=== PATIENT | male | born 1975 | race Caucasian/White ===

== ENCOUNTER 2018-06-21 18:54 | Emergency (ER) | payer SELFPAY ==
[2018-06-21 19:29] VITALS: BP 169/98; PULSE 98; RESP 16; TEMP 39; O2SAT 96
--- NOTE | 2018-06-21 20:16 | DI.REPORT_ITS ---
SYMPTOM/DIAGNOSIS: ATRAUMATIC SWELLING. LEFT KNEE: The joint spaces are well maintained. A large joint effusion is visible. There is minimal minda-articular spurring. No fracture or bony erosions are seen. IMPRESSION: Joint effusion.
--- NOTE | 2018-06-21 20:17 | ED.GENADUL ---
Disposition Clinical Impression: Swelling of left knee joint Condition: Stable Instructions: Swollen Knee Joint (ED) Additional Instructions: you can take 1000mg tylenol and 600mg ibuprofen every 6 hours for pain as needed if you have severe worsening of pain or fevers return to the emergency department follow up with your primary care provider this week Medical Decision Making - Lab Data Laboratory Tests 06/21/18 06/21/18 20:47 20:47 WBC 15.62 H RBC 5.11 Hgb 15.7 Hct 45.0 MCV 88.1 MCH 30.7 MCHC 34.9 RDW 13.5 Plt Count 311 MPV 9.8 Immature Gran % 0.3 Neutrophils % 62.7 Lymphocytes % 26.4 Monocytes % 8.9 Eosinophils % 1.3 Basophils % 0.4 Absolute Neutrophils 9.79 H Absolute Lymphocytes 4.12 H Absolute Monocytes 1.39 H Absolute Eosinophils 0.20 Absolute Basophils 0.06 ESR 13 Sodium 137 Potassium 3.7 Chloride 100 Carbon Dioxide 27.1 Anion Gap 9.9 BUN 18 Creatinine 1.16 Estimated GFR/1.73 m2 >= 60.00 Glucose 170 H Uric Acid 6.9 Calcium 8.9 Total Bilirubin 0.4 AST 18 ALT 66 Alkaline Phosphatase 104 C-Reactive Protein 2.60 H Total Protein 7.5 Albumin 3.5 Results reviewed for labs ordered during visit: Yes - Radiology Data Radiology results: report reviewed X-ray reviewed by radiologist. Advise large knee effusion. No acute fracture seen. Alignment is within the normal limits. There is minimal marginal spurring along the medial compartment and inferior patella. Joint spaces are otherwise well-maintained. - Medical Decision Making Patient presents today with chief complaint of left knee pain. On exam, left knee is noted to have moderate effusion. No erythema or discoloration. No signs of trauma. The knee is warm to palpation. He is describing as a pressure diffusely about the knee. No joint line tenderness. Is able to straight leg raise. Calf is soft and nontender. Patient appears nontoxic. Temp is noted to be 39?C. I have asked nursing staff to repeat this orally. Will obtain x-ray to evaluate for possible bony abnormality. Will obtain CBC, CMP, uric acid, ESR and CRP. Discussed this plan with the patient is in agreement. He is declining any analgesics at this time. Temp was repeated by nursing staff orally, 36.5C. Patient did not appear febrile, did not feel warm. I am questioning if the initial reading was inacurate given the way in which this was measured. X-ray reviewed by radiology. They advised that he has a large knee effusion with no evidence of acute osseous abnormality. Early medial patellofemoral compartment syndrome also arthritis noted. Patient was able to ambulate to radiology department unassisted. Minimally antalgic gait. He continues to decline any analgesics. States the pain is minimal at this time. Laboratory evaluation significant for leukocytosis with WBC of 15.62. Left shift with neutrophil of 9.79. CRP is 2.6. Uric acid is normal at 6.9 as his ESR 13. Discussed above findings with the patient. I discussed my concern for possible infection. We discussed risk/benefits of joint aspiration. He voiced understanding and wishes to proceed. Procedure note: Using standard sterile technique the left knee was initially anesthetized with LMX cream. This was then removed and the skin and the skin was prepped with 3 swabs of Betadine. Using sterile gloves and 18-gauge needle was used to aspirate 30 cc of joint fluid. Appears slightly orange, almost hemorrhagic. There are small floaters suggestive of possible degenerative changes in the fluid. Patient tolerated procedure well and a dry sterile management in place. Joint aspirate fluid was sent for laboratory evaluation. At the end of my shift, this is still pending. Care was transitioned to Dr. Garcia with joint aspirate fluid still pending. Discussed plan of treatment with the patient should this be bacterial infection which will include IV antibiotics and admission. History of Present Illness - General Chief complaint: Orthopedic Stated complaint: LEFT KNEE SWOLLEN Time Seen by Provider: 06/21/18 20:07 Source: patient, family, RN notes reviewed Mode of arrival: ambulatory Limitations: no limitations - History of Present Illness Initial comments: Patient is a 42-year-old male, coming by significant other, with chief complaint of left knee pain. He reports that he awoke yesterday morning and noted pain and swelling to the left knee. Has not noted skin discoloration. Denies any trauma. Denies any overuse injury. States that he did injure this knee as a child and needed suture closure of anterior laceration. No surgery on affected knee. He denies any fevers or chills. Reports that overall he is feeling quite well. Denies any pain in the lower leg or thigh. States that he was active today, ambulating around [facility]. States that he did drink several alcoholic beverages last night. No alcohol the day before. Patient is an active smoker. Patient denies penile discharge. No new sexual partners. He reports she has been tested for STDs in the past and has been found to be negative. He denies any changes in his eyes, no discharge, visual changes. Denies any headache. - Related Data Hydrochlorothiazide 1 tab PO DAILY 06/28/17 Lisinopril 1 tab PO DAILY 06/28/17 Omeprazole [PriLOSEC] 1 tab PO DAILY 06/28/17 Allergies Allergy/AdvReac Type Severity Reaction Status Date / Time Penicillins Allergy Unknown Unverified 06/21/18 19:33 Review of Systems Constitutional: no symptoms reported, see HPI Respiratory: no symptoms reported Cardiovascular: denies: chest pain Gastrointestinal: denies: abdominal pain, nausea, vomiting Musculoskeletal: as per HPI Skin: as per HPI. denies: rash, lesions, change in color Neurological: as per HPI, abnormal gait (Reports that he has discomfort with ambulation). denies: numbness, paresthesias Past Medical History - Past Medical History Medical history: no medical history Surgical history: non-contributory - Social History Alcohol use: heavy (Daily alcohol use) General Exam - General Limitations: no limitations General appearance: alert, in no apparent distress - Eye Eye exam: Present: normal apperance - Respiratory Respiratory exam: Present: normal lung sounds bilaterally. Absent: respiratory distress - Cardiovascular Cardiovascular Exam: Present: regular rate, normal rhythm, normal heart sounds - Extremities Exam Extremities exam: Present: tenderness (Reports he is diffuse pressure about the knee), normal capillary refill, joint swelling. Absent: normal inspection (Exam the patient's left lower extremity is significant for moderate effusion to the left knee. No discoloration. No erythema. Knee is warm to the touch. No evidence of trauma. He is good range of motion. Calf is soft and nontender. No joint line tenderness. Patient is able to straight leg raise. No palpable deformity. No pain elicited with palpation.), pedal edema, calf tenderness - Neurological Exam Neurological exam: Present: alert, normal gait. Absent: motor sensory deficit - Psychiatric Psychiatric exam: Present: normal affect, normal mood - Skin Skin exam: Present: warm, dry, normal color Course Vital Signs - 24 hr 06/21/18 19:29 Temperature 39 C H Pulse 98 H Respiratory 16 Rate Blood Pressure 169/98 Pulse Oximetry 96
[2018-06-21 20:31] VITALS: TEMP 36.4
--- NOTE | 2018-06-21 21:27 | DI.VRAD_ITS ---
EXAM: XR Left Knee, 4 or more Views EXAM DATE/TIME: 06/21/2018 8:17 PM CLINICAL HISTORY: 42 years old, male; Pain; Knee; Left; Patient HX: A-traumatic swelling of lt. Knee TECHNIQUE: XR Left knee 4 or more views. COMPARISON: No relevant prior studies available. FINDINGS: Bones/joints: Large knee joint effusion is present. No acute fractures are seen. Alignment is within normal limits. There is minimal marginal spurring along the medial compartment and inferior patella. Joint spaces are otherwise preserved. Soft tissues: Normal. IMPRESSION: 1. Large knee joint effusion without evident acute osseous abnormality. 2. Early medial and patellofemoral compartment osteoarthrosis. Dictated and Authenticated by: Christopher Yoon MD. Ordering:JONATAN MUNOZ MD
[2018-06-21 21:34] LABS: ALT 66 U/L (12-78); AST 18 U/L (15-37); Albumin 3.5 g/dL (3.4-5.0); Alkaline Phosphatase 104 U/L (46-116); Anion Gap 9.9 mmol/L (3-11); BUN 18 mg/dL (7-18); Bilirubin, Total 0.4 mg/dL (0.2-1.0); CO2 27.1 mmol/L (21.0-32.0); CREATININE 1.16 mg/dL (0.70-1.30); Calcium 8.9 mg/dL (8.5-10.1); Chloride 100 mmol/L (98-107); Glucose 170 mg/dL (70-100); Potassium 3.7 mmol/L (3.5-5.1); Sodium 137 mmol/L (136-145); Total Protein 7.5 g/dL (6.4-8.2); Uric Acid 6.9 mg/dL (3.5-7.2)
[2018-06-21 21:42] LABS: Abs Immature Grans 0.04 k/cumm (0.0-0.09); Absolute Basophil Count 0.06 k/cumm (0.0-0.2); Absolute Lymphocyte Count 4.12 k/cumm (1.2-3.4); Absolute Monocyte Count 1.39 k/cumm (0.11-0.7); Absolute Neutrophil Count 9.79 k/cumm (1.2-6.7); Basophils % 0.4; Eosinophils % 1.3; HGB 15.7 g/dL (13.5-17.5); Immature Grans % 0.3; Lymphocytes % 26.4; Mean Corp. HGB Concentration 34.9 g/dL (32.0-36.0); Mean Corpuscular Hemoglobin 30.7 pg (27.0-33.0); Mean Corpuscular Volume 88.1 fL (80-95); Mean Platelet Volume 9.8 fL (8.0-11.0); Monocytes % 8.9; Neutrophils % 62.7; Platelet Count 311 x1000/uL (130-400); RBC 5.11 m/cumm (4.50-6.00); RBC Distribution Width 13.5 % (11.8-14.1); White Blood Cell Count 15.62 k/cumm (4.4-10.8)
[2018-06-21 22:09] LABS: ESR 13 MM/HR (0-15)
[2018-06-21 22:54] LABS: Source L KNEE
[2018-06-21 22:55] LABS: Clarity CLOUDY; Nucleated Cells 4674 /MM3 (0-0)
[2018-06-21 23:12] LABS: Mononuclear Cells 40 % (0-0); Polynuclear Cells 60 % (0-0)
[2018-06-21 23:20] LABS: Source KNEE
--- NOTE | 2018-06-21 23:44 | ED.FU ---
Disposition Clinical Impression: Swelling of left knee joint Condition: Stable Instructions: Swollen Knee Joint (ED) Additional Instructions: you can take 1000mg tylenol and 600mg ibuprofen every 6 hours for pain as needed if you have severe worsening of pain or fevers return to the emergency department follow up with your primary care provider this week Medical Decision Making - Lab Data Laboratory Tests 06/21/18 06/21/18 06/21/18 20:47 20:47 22:30 WBC 15.62 H RBC 5.11 Hgb 15.7 Hct 45.0 MCV 88.1 MCH 30.7 MCHC 34.9 RDW 13.5 Plt Count 311 MPV 9.8 Immature Gran % 0.3 Neutrophils % 62.7 Lymphocytes % 26.4 Monocytes % 8.9 Eosinophils % 1.3 Basophils % 0.4 Absolute Neutrophils 9.79 H Absolute Lymphocytes 4.12 H Absolute Monocytes 1.39 H Absolute Eosinophils 0.20 Absolute Basophils 0.06 ESR 13 Sodium 137 Potassium 3.7 Chloride 100 Carbon Dioxide 27.1 Anion Gap 9.9 BUN 18 Creatinine 1.16 Estimated GFR/1.73 m2 >= 60.00 Glucose 170 H Uric Acid 6.9 Calcium 8.9 Total Bilirubin 0.4 AST 18 ALT 66 Alkaline Phosphatase 104 C-Reactive Protein 2.60 H Total Protein 7.5 Albumin 3.5 Fluid Source L knee Fluid Color Red Fluid Appearance Cloudy Fluid WBC 4674 H Fluid Mononuclear Cell 40 H Fl Polymorphonucl Cell 60 H Fluid Crystals Fluid Crystal Source 06/21/18 22:30 WBC RBC Hgb Hct MCV MCH MCHC RDW Plt Count MPV Immature Gran % Neutrophils % Lymphocytes % Monocytes % Eosinophils % Basophils % Absolute Neutrophils Absolute Lymphocytes Absolute Monocytes Absolute Eosinophils Absolute Basophils ESR Sodium Potassium Chloride Carbon Dioxide Anion Gap BUN Creatinine Estimated GFR/1.73 m2 Glucose Uric Acid Calcium Total Bilirubin AST ALT Alkaline Phosphatase C-Reactive Protein Total Protein Albumin Fluid Source Fluid Color Fluid Appearance Fluid WBC Fluid Mononuclear Cell Fl Polymorphonucl Cell Fluid Crystals See comment Fluid Crystal Source Knee Results reviewed for labs ordered during visit: Yes Care Signed Out By:: casandra thorpe - Vital Signs Recent Vitals - 8H: Vital Signs - 8 hr 06/21/18 06/21/18 19:29 20:31 Temperature 102.2 F H 97.5 F L Pulse 98 H Respiratory 16 Rate Blood Pressure 169/98 Pulse Oximetry 96 - Continuation of Care Continuation of Care Plan: Patient's arthrocentesis studies show wbc over 4000, no bacteria on gram stain or crystals. He states he noticed it was uncomfortable on Friday morning and denie fevers or chills or trauma. He has no significant redness of the knee on my exam and has full rom of the knee. He states most of the time he doesn't even have pain unless he twists it a certain way Given reassuring arthrocentesis studies that this is not septic joint will have him f/u with his pcp and return precautions given. I did add on lyme studies. No urinary symptoms or d/c and no vision changes so doubt gonococcal arthritis
[2018-06-23 10:55] LABS: Lyme Ab w Rflx to Lyme Confirm Negative
[2018-06-23 22:12] LABS: Anaplasma phagocytophilum Negative (Negative); B. miyamotoi PCR Negative (Negative); Babesia divergens/MO-1 Negative (Negative); Babesia duncani Negative (Negative); Babesia microti Negative (Negative); Ehrlichia chaffeensis Negative (Negative); Ehrlichia ewingii/canis Negative (Negative); Ehrlichia muris eauclairensis Negative (Negative)
--- NOTE | 2018-06-27 09:52 | ED.FU.B ---
- Follow Up Follow Up Plan: message left for patient as his synovial culture is growing staph species, attempted to make contact to see how he was doing to determine if this was contaminant or not
== END 2018-06-21 23:58 ==
PROVIDERS: Physician Assistant; Emergency Provider Emergency Medicine; PCP Nurse Practitioner Family
DX: M25.462 Effusion, left knee (principal)
CPT/HCPCS: 20610; 80053; 85652; 87077; 99283; 73564; 84550; 85025; 86140; 86618; 87070; 87205; 87798; 89051; 89060

== ENCOUNTER 2018-07-11 11:05 | Emergency (ER) | payer SELFPAY ==
[2018-07-11] MEDS: Clindamycin 150 MG CAP 450 MG (11:25)
--- NOTE | 2018-07-11 12:00 | DI.US_ITS ---
SYMPTOMS/DIAGNOSIS: LEFT REDNESS, SWELLING RIGHT LOWER EXTREMITY ULTRASOUND: There is edema in the area of the swelling and redness in the calf. The deep venous system is freely compressible. No thrombus is visible. No superficial thrombophlebitis is seen. There is no evidence of Black's cyst or other fluid collection. There are mildly enlarged groin lymph nodes, which may indicate cellulitis. IMPRESSION: No evidence of DVT.
== END 2018-07-11 12:45 | disposition home or self-care (01) ==
LOC: ER 12:42
PROVIDERS: Emergency Provider Emergency Medicine; PCP Nurse Practitioner Family
DX: L03.115 Cellulitis of right lower limb (principal); I10 Essential (primary) hypertension
CPT/HCPCS: 99284; 93971

== ENCOUNTER 2018-11-16 20:04 | Emergency (ER) | payer BC, SELFPAY ==
[2018-11-16 20:08] VITALS: BP 157/98; PULSE 120; RESP 28; TEMP 36.6; O2SAT 94
[2018-11-16] MEDS: Albuterol/Ipratropium 3 ML UPD VIAL UPD (20:20)
--- NOTE | 2018-11-16 20:25 | W.ED.GENAD ---
Discharge Plan Disposition Patient Disposition: HOME Condition: Stable Discharge Details Chief Complaint: RespSymp Clinical Impression: Pneumonia Primary Care Provider: Lora Garrett ED Provider: Erika Gomez Home Meds and New Rx's Prescriptions: New benzonatate [Tessalon Perles] 100 mg capsule 100 mg PO QID PRN (Reason: cough) Qty: 10 RF: 0 levofloxacin 750 mg tablet 750 mg PO DAILY Qty: 4 RF: 0 Continued omeprazole 40 MG capsule,delayed release(DR/EC) 1 tab PO DAILY RF: 0 lisinopril 40 MG tablet 1 tab PO DAILY RF: 0 hydrochlorothiazide 12.5 MG tablet 2 tab PO DAILY RF: 0 Discharge Instructions Instructions: Benzonatate (By mouth), Levofloxacin (By mouth), Pneumonia (ED) Additional Instructions: Encourage hydration. Tylenol and/or Motrin as needed for discomfort. Stop smoking. Take antibiotics as prescribed, even if symptoms improve please take entire course. Tessalon perles as prescribed to help with symptomatic management. If you develop shortness of breath, difficulty breathing, inability to stay hydrated or other new/worsneing symptoms please seek care urgently once again. Follow up with primary care at the end of the week for reevaluation. Referrals: Lora Garrett [Primary Care Provider] - Medical Decision Making Patient is a 43 year old male, accompanied by , with c/c of cough, fevers, body aches. Reprorts that he initially began with symptoms 1.5 weeks ago. REprots that this initially lasted one week and then he was improving. Hoewver, today he had a sudden recurrence of symptoms. Has been taking Robittusin. Endorses dry heaves after forceful coughing but denies nausea/vomiting otherwise. No change in bowel habits. No SOB or CP. Reports history of COPD, HTN. Patient smokes 1PPD. Did not receive influenza vaccine. On exam, he appers pale and fatigued. Patient has crackles in LLL. Tachycardic at 120, O2 94%, respiratory rate 28. Currently afebrile. REviewed previous visits, O2 is typically around 94%, likely associated with COPD and smoking status. Influenza negative. WBC 20. Creatinine 1.33. Glucose 197, patietn denies personal or family history of diabetes. AST 41, alk phos 128. These have not been elevated historically. He denies RUQ pain. This may be associated with recent viral illness. Advised he have these reassessed by his PCP XR reviewed by radiologist: FINDINGS: No airspace consolidation, pleural effusion or pneumothorax. The cardiomediastinal silhouette is unremarkable. IMPRESSION: No acute findings. Discussed findings with the patient and his . Whlie XR does not show on imaging, his history and physical exam is concerning for pneumonia. He will be treated with abx, will begin these here. Patient receiving 2nd liter of fluids. Will begin on Levofloxacin. With patients history of COPD and his allergy to Penicillin, patient needs to be treated with flouroquinolone. Patient given first dose of Levofloxacin while here, tolerated this well. Encouraged hydration. Will give Tessalon Perles to help with symptomatic management. HR improved after fluids, he appears more energetic. Patient remains afebrile. Patient given strict return precautions. Advised f/u with PCP. Encouraged smoking cessation. All of their questions and concerns were addressed, they are in agreement with this plan. HPI General Mode of arrival: ambulatory. Date/Time Provider Initiated Documentation: 11/16/18 20:12. Limitations to Documentation: no limitations. Information obtained by: patient and family (accompanied by ). History of Present Illness 43 year old M presents to the emergency department with the chief complaint of cough, described as moderate, Patient started experiencing this day(s) (1) and it has been constant. No relieving factors improve symptom(s), No exacerbating factors reported . Patient notes cough, fever/chills, loss of appetite and nausea/vomiting (nausea associated with cough); denies chest pain, diaphoresis, headaches, malaise, rash, shortness of breath and syncope. Patient did receive the following treatments prior to arrival, other (robitussin) Related Data Home Medications Medication Instructions Recorded Confirmed hydrochlorothiazide 2 tab PO DAILY 06/28/17 11/16/18 lisinopril 1 tab PO DAILY 06/28/17 11/16/18 omeprazole 1 tab PO DAILY 06/28/17 11/16/18 benzonatate [Tessalon Perles] 100 mg PO QID PRN #10 cap 11/16/18 levofloxacin 750 mg PO DAILY #4 tab 11/16/18 Previous Rx's Medication Instructions Recorded benzonatate [Tessalon Perles] 100 mg PO QID PRN #10 cap 11/16/18 levofloxacin 750 mg PO DAILY #4 tab 11/16/18 Allergies Allergy/AdvReac Type Severity Reaction Status Date / Time Penicillins Allergy Unknown Unverified 06/21/18 19:33 General Stated Complaint: RespSymp REGULO: 3 Review of Systems Constitutional Reports as per HPI and Denies headache(s) Eyes Reports as per HPI, Denies eye discharge and Denies irritation ENT Denies change in voice, Denies ear discharge, Denies otalgia, Denies headache(s), Reports nasal congestion, Reports nasal discharge, Denies sore throat and Denies throat swelling Cardiovascular Reports as per HPI, Denies chest pain and Denies dyspnea Respiratory Reports as per HPI, Reports cough, Denies pain on inspiration, Denies pain with cough, Denies dyspnea, Denies stridor and Denies wheezing Gastrointestinal Reports as per HPI, Denies abdominal pain, Denies change in bowel habits, Denies nausea and Denies vomiting Integumentary/Breasts Reports as per HPI and Denies rash Neurologic Denies headache(s) Allergic/Immunologic Denies throat swelling and Denies wheezing [facility] Social History Smoking/Tobacco Use Status: Current every day Exam Const General: cooperative, healthy appearing, comfortable, no acute distress, well developed and well groomed Nutritional Appearance: average body habitus and well nourished Orientation: alert and awake [facility] Head: normal to inspection, normocephalic and atraumatic Ears: hearing grossly normal bilaterally, external ears normal and TM's normal bilaterally General nose exam: external nose normal and nares normal Face and sinus: normal facial exam, sinuses nontender and face symmetric Mouth: oral mucosae normal, lip normal, tongue normal, oropharynx normal and moist mucous membranes Teeth and gingiva: dentition normal Throat: posterior oropharynx normal, tonsils normal and uvula midline Eyes General: appearance normal, both eyes and all related structures Neck Neck: normal visual inspection, full ROM, no lymphadenopathy and no meningeal signs Resp Effort & Inspection: normal respiratory effort, able to speak in complete sentences and no respiratory distress Auscultation: crackles on the left in the lower lung brown, no rales, no rhonchi and no wheezes Cardio Rate: regular rate Rhythm: regular rhythm Heart Sounds: S1 normal and S2 normal Skin General skin exam: no rashes or lesions noted Neuro General: alert and awake Cognition: normal cognition Speech: speech normal Gait: normal gait Extrem General: no pedal edema and no calf tenderness Psych Appearance: grossly normal and well kempt Mental Status: mental status grossly normal Speech and Movement: speech and movement normal Course Vital Signs Temperature 36.6 C 11/16/18 20:08 Pulse 120 H 11/16/18 20:08 Respiratory Rate 28 H 11/16/18 20:08 Blood Pressure 157/98 H 11/16/18 20:08 Pulse Oximetry 94 L 11/16/18 20:08 Temperature 36.6 C 11/16/18 20:08 Temperature Source Skin 11/16/18 20:08 Pulse 120 H 11/16/18 20:08 Respiratory Rate 28 H 11/16/18 20:08 Respiratory Effort 11/16/18 20:12 Blood Pressure 157/98 H 11/16/18 20:08 Blood Pressure Position Sitting 11/16/18 20:08 Pulse Oximetry 94 L 11/16/18 20:08 Oxygen Delivery Method Room Air 11/16/18 20:08 Oxygen Flow Rate 0 11/16/18 20:08 Pain Level 0 11/16/18 20:08 Lab/Test Results Lab/Test Results: 11/16/18 20:20 Nasopharynx Influenza Types A,B Antigen - Pending
--- NOTE | 2018-11-16 20:28 | ED.GENADUL_ITS ---
Discharge Plan Disposition Patient Disposition: HOME Condition: Stable Discharge Details Chief Complaint: RespSymp Clinical Impression: Pneumonia Primary Care Provider: Lora Garrett ED Provider: Erika Gomez Home Meds and New Rx's Prescriptions: New benzonatate [Tessalon Perles] 100 mg capsule 100 mg PO QID PRN (Reason: cough) Qty: 10 RF: 0 levofloxacin 750 mg tablet 750 mg PO DAILY Qty: 4 RF: 0 Continued omeprazole 40 MG capsule,delayed release(DR/EC) 1 tab PO DAILY RF: 0 lisinopril 40 MG tablet 1 tab PO DAILY RF: 0 hydrochlorothiazide 12.5 MG tablet 2 tab PO DAILY RF: 0 Discharge Instructions Instructions: Benzonatate (By mouth), Levofloxacin (By mouth), Pneumonia (ED) Additional Instructions: Encourage hydration. Tylenol and/or Motrin as needed for discomfort. Stop smoking. Take antibiotics as prescribed, even if symptoms improve please take entire course. Tessalon perles as prescribed to help with symptomatic management. If you develop shortness of breath, difficulty breathing, inability to stay hydrated or other new/worsneing symptoms please seek care urgently once again. Follow up with primary care at the end of the week for reevaluation. Referrals: Lora Garrett [Primary Care Provider] - Medical Decision Making Patient is a 43 year old male, accompanied by , with c/c of cough, fevers, body aches. Reprorts that he initially began with symptoms 1.5 weeks ago. REprots that this initially lasted one week and then he was improving. Hoewver, today he had a sudden recurrence of symptoms. Has been taking Robittusin. Endorses dry heaves after forceful coughing but denies nausea/vomiting otherwise. No change in bowel habits. No SOB or CP. Reports history of COPD, HTN. Patient smokes 1PPD. Did not receive influenza vaccine. On exam, he appers pale and fatigued. Patient has crackles in LLL. Tachycardic at 120, O2 94%, respiratory rate 28. Currently afebrile. REviewed previous visits, O2 is typically around 94%, likely associated with COPD and smoking status. Influenza negative. WBC 20. Creatinine 1.33. Glucose 197, patietn denies personal or family history of diabetes. AST 41, alk phos 128. These have not been elevated historically. He denies RUQ pain. This may be associated with recent viral illness. Advised he have these reassessed by his PCP XR reviewed by radiologist: FINDINGS: No airspace consolidation, pleural effusion or pneumothorax. The cardiomediastinal silhouette is unremarkable. IMPRESSION: No acute findings. Discussed findings with the patient and his . Whlie XR does not show on imaging, his history and physical exam is concerning for pneumonia. He will be treated with abx, will begin these here. Patient receiving 2nd liter of fluids. Will begin on Levofloxacin. With patients history of COPD and his allergy to Penicillin, patient needs to be treated with flouroquinolone. Patient given first dose of Levofloxacin while here, tolerated this well. Encou raged hydration. Will give Tessalon Perles to help with symptomatic management. HR improved after fluids, he appears more energetic. Patient remains afebrile. Patient given strict return precautions. Advised f/u with PCP. Encouraged smoking cessation. All of their questions and concerns were addressed, they are in agreement with this plan. HPI General Mode of arrival: ambulatory . Date/Time Provider Initiated Documentation: 11/16/18 20:12 . Limitations to Documentation: no limitations . Information obtained by: patient and family (accompanied by ) . History of Present Illness 43 year old M presents to the emergency department with the chief complaint of cough, described as moderate, Patient started experiencing this day(s) (1) and it has been constant. No relieving factors improve symptom(s), No exacerbating factors reported . Patient notes cough, fever/chills, loss of appetite and nausea/vomiting (nausea associated with cough); denies chest pain, diaphoresis, headaches, malaise, rash, shortness of breath and syncope. Patient did receive the following treatments prior to arrival, other (robitussin) Related Data Home Medications Medication Instructions Recorded Confirmed hydrochlorothiazide 2 tab PO DAILY 06/28/17 11/16/18 lisinopril 1 tab PO DAILY 06/28/17 11/16/18 omeprazole 1 tab PO DAILY 06/28/17 11/16/18 benzonatate [Tessalon Perles] 100 mg PO QID PRN #10 cap 11/16/18 levofloxacin 750 mg PO DAILY #4 tab 11/16/18 Previous Rx's Medication Instructions Recorded benzonatate [Tessalon Perles] 100 mg PO QID PRN #10 cap 11/16/18 levofloxacin 750 mg PO DAILY #4 tab 11/16/18 Allergies Allergy/AdvReac Type Severity Reaction Status Date / Time Penicillins Allergy Unknown Unverified 06/21/18 19:33 General Stated Complaint: RespSymp REGULO: 3 Review of Systems Constitutional Reports as per HPI and Denies headache(s) Eyes Reports as per HPI, Denies eye discharge and Denies irritation ENT Denies change in voice, Denies ear discharge, Denies otalgia, Denies headache(s), Reports nasal congestion, Reports nasal discharge, Denies sore throat and Denies throat swelling Cardiovascular Reports as per HPI, Denies chest pain and Denies dyspnea Respiratory Reports as per HPI, Reports cough, Denies pain on inspiration, Denies pain with cough, Denies dyspnea, Denies stridor and Denies wheezing Gastrointestinal Reports as per HPI, Denies abdominal pain, Denies change in bowel habits, Denies nausea and Denies vomiting Integumentary/Breasts Reports as per HPI and Denies rash Neurologic Denies headache(s) Allergic/Immunologic Denies throat swelling and Denies wheezing FOR[facility]LY [facility] Social History Smoking/Tobacco Use Status: Current every day Exam Const General: cooperative, healthy appearing, comfortable, no acute distress, well developed and well groomed Nutritional Appearance: average body habitus and well nourished Orientation: alert and awake [facility] Head: normal to inspection, normocephalic and atraumatic Ears: hearing grossly normal bilaterally, external ears normal and TM's normal bilaterally General nose exam: external nose normal and nares normal Face and sinus: normal facial exam, sinuses nontender and face symmetric Mouth: oral mucosae normal, lip normal, tongue normal, oropharynx normal and moist mucous membranes Teeth and gingiva: dentition normal Throat: posterior oropharynx normal, tonsils normal and uvula midline Eyes General: appearance normal, both eyes and all related structures Neck Neck: normal visual inspection, full ROM, no lymphadenopathy and no meningeal signs Resp Effort & Inspection: normal respiratory effort, able to speak in complete sentences and no respiratory distress Auscultation: crackles on the left in the lower lung brown, no rales, no rhonchi and no wheezes Cardio Rate: regular rate Rhythm: regular rhythm Heart Sounds: S1 normal and S2 normal Skin General skin exam: no rashes or lesions noted Neuro General: alert and awake Cognition: normal cognition Speech: speech normal Gait: normal gait Extrem General: no pedal edema and no calf tenderness Psych Appearance: grossly normal and well kempt Mental Status: mental status grossly normal Speech and Movement: speech and movement normal Course Vital Signs Temperature 36.6 C 11/16/18 20:08 Pulse 120 H 11/16/18 20:08 Respiratory Rate 28 H 11/16/18 20:08 Blood Pressure 157/98 H 11/16/18 20:08 Pulse Oximetry 94 L 11/16/18 20:08 Temperature 36.6 C 11/16/18 20:08 Temperature Source Skin 11/16/18 20:08 Pulse 120 H 11/16/18 20:08 Respiratory Rate 28 H 11/16/18 20:08 Respiratory Effort 11/16/18 20:12 Blood Pressure 157/98 H 11/16/18 20:08 Blood Pressure Position Sitting 11/16/18 20:08 Pulse Oximetry 94 L 11/16/18 20:08 Oxygen Delivery Method Room Air 11/16/18 20:08 Oxygen Flow Rate 0 11/16/18 20:08 Pain Level 0 11/16/18 20:08 Lab/Test Results Lab/Test Results: 11/16/18 20:20 Nasopharynx Influenza Types A,B Antigen - Pending
[2018-11-16] MEDS: Normal Saline 1,000 ML 1000 ML IV (20:40)
[2018-11-16 20:54] LABS: Abs Immature Grans 0.07 k/cumm (0.0-0.09); HCT 45.9 % (40.0-50.0); HGB 15.8 g/dL (13.5-17.5); Mean Corp. HGB Concentration 34.4 g/dL (32.0-36.0); Mean Corpuscular Hemoglobin 30.4 pg (27.0-33.0); Mean Corpuscular Volume 88.3 fL (80-95); Mean Platelet Volume 9.4 fL (8.0-11.0); Platelet Count 382 x1000/uL (130-400); RBC Distribution Width 13.1 % (11.8-14.1); White Blood Cell Count 20.08 k/cumm (4.4-10.8)
[2018-11-16 21:09] LABS: Absolute Lymphocyte Count 3.82 k/cumm (1.2-3.4); Absolute Monocyte Count 2.21 k/cumm (0.11-0.7); Absolute Neutrophil Count 13.86 k/cumm (1.2-6.7); Atypical Lymphocytes % 0; RBC Morphology Normal
[2018-11-16 21:18] LABS: ALT 128 U/L (12-78); AST 41 U/L (15-37); Albumin 3.6 g/dL (3.4-5.0); Alkaline Phosphatase 102 U/L (46-116); Anion Gap 11.7 mmol/L (3-11); BUN 18 mg/dL (7-18); Bilirubin, Total 0.7 mg/dL (0.2-1.0); CO2 26.3 mmol/L (21.0-32.0); CREATININE 1.33 mg/dL (0.70-1.30); Chloride 99 mmol/L (98-107); Estimated GFR 58.68 (mL/min/1.73m2); Glucose 197 mg/dL (70-100); Potassium 4.4 mmol/L (3.5-5.1); Sodium 137 mmol/L (136-145)
--- NOTE | 2018-11-16 21:20 | DI.RAD_ITS ---
SYMPTOMS/DIAGNOSIS: COUGH CHEST: Frontal and lateral views. Comparison 01/12/13. The heart size and pulmonary vasculature are stable and within normal limits. The lungs are free of infiltrates, effusions or pneumothoraces. The bones appear intact. IMPRESSION: No acute pulmonary process.
[2018-11-16 21:33] VITALS: PULSE 104; RESP 26; TEMP 37.1; O2SAT 94
--- NOTE | 2018-11-16 21:56 | DI.VRAD_ITS ---
EXAM: XR Chest, 2 Views EXAM DATE/TIME: 11/16/2018 8:14 PM CLINICAL HISTORY: 43 years old, male; Signs and symptoms; Cough; Patient HX: Cough and cold symptoms x 1 week, smoker TECHNIQUE: XR of the chest, 2 views. COMPARISON: CR CHEST 2 VIEWS PA,LAT 06/08/2015 4:00 PM FINDINGS: No airspace consolidation, pleural effusion or pneumothorax. The cardiomediastinal silhouette is unremarkable. IMPRESSION: No acute findings. Dictated and Authenticated by: Ezekiel Sahu MD. Ordering:JONATAN James MD
[2018-11-16] MEDS: Lactated Ringers 1,000 ML 1000 ML IV (22:00)
[2018-11-16] MEDS: Benzonatate 100 MG CAP 200 MG PO (23:10)
[2018-11-16 23:14] VITALS: BP 147/86; PULSE 101; RESP 24; TEMP 37.1; O2SAT 96
== END 2018-11-16 23:14 | disposition home or self-care (01) ==
PROVIDERS: Emergency Provider Physician Assistant; PCP Nurse Practitioner Family
DX: J18.9 Pneumonia, unspecified organism (principal); F17.210 Nicotine dependence, cigarettes, uncomplicated
CPT/HCPCS: 36415; 80053; 87449; 99283; 71046; 85025; J7620

== ENCOUNTER 2019-07-08 10:51 | Outpatient (CLI) | payer BC, SELFPAY ==
[2019-07-08 11:06] LABS: Abs Immature Grans 0.02 k/cumm (0.0-0.09); Absolute Basophil Count 0.05 k/cumm (0.0-0.2); Absolute Eosinophil Count 0.24 k/cumm (0.0-0.7); Absolute Lymphocyte Count 3.42 k/cumm (1.2-3.4); Absolute Monocyte Count 0.87 k/cumm (0.11-0.7); Absolute Neutrophil Count 6.74 k/cumm (1.2-6.7); Basophils % 0.4; Eosinophils % 2.1; HCT 46.5 % (40.0-50.0); HGB 16.3 g/dL (13.5-17.5); Immature Grans % 0.2; Lymphocytes % 30.2; Mean Corp. HGB Concentration 35.1 g/dL (32.0-36.0); Mean Corpuscular Hemoglobin 30.9 pg (27.0-33.0); Mean Corpuscular Volume 88.2 fL (80-95); Mean Platelet Volume 9.3 fL (8.0-11.0); Monocytes % 7.7; Neutrophils % 59.4; Platelet Count 356 x1000/uL (130-400); RBC 5.27 m/cumm (4.50-6.00); RBC Distribution Width 12.6 % (11.8-14.1); White Blood Cell Count 11.34 k/cumm (4.4-10.8)
[2019-07-08 11:48] LABS: C-Reactive Protein 2.05 mg/dL (0.0-0.3)
[2019-07-08 12:57] LABS: ESR 15 mm/hr (0-15)
[2019-07-09 10:55] LABS: Lyme Ab w Rflx to Lyme Confirm Negative
[2019-07-09 12:58] LABS: Rheumatoid Factor <8 IU/mL (<12.5)
[2019-07-09 14:13] LABS: ANA Interpretation Positive (NEGAT); ANA Titer Pattern 1:160 Speckled
== END 2019-07-08 11:11 ==
PROVIDERS: PCP Nurse Practitioner Family; Visit Provider Orthopaedic Surgery
DX: M25.462 Effusion, left knee (principal)
CPT/HCPCS: 36415; 85652; 85025; 86038; 86140; 86431; 86618

== ENCOUNTER 2019-07-08 11:05 | Outpatient (REF) | payer BC, SELFPAY ==
[2019-07-08 11:54] LABS: Clarity CLEAR; Nucleated Cells 1756 /MM3 (0-0); Polynuclear Cells 38 % (0-0); Source L KNEE
[2019-07-08 11:55] LABS: Mononuclear Cells 62 % (0-0)
== END 2019-07-08 11:25 ==
LOC: LBN 11:05
PROVIDERS: PCP Nurse Practitioner Family; Visit Provider Orthopaedic Surgery
DX: M25.462 Effusion, left knee (principal)
CPT/HCPCS: 87070; 87205; 89051; 89060

== ENCOUNTER 2020-08-09 19:30 | Outpatient (REF) | payer BC, SELFPAY ==
[2020-08-09 18:19] LABS: HCT 49.9 % (40.0-50.0); HGB 16.8 g/dL (13.5-17.5); MCH 30.3 pg (27.0-33.0); MCHC 33.7 % (32.0-36.0); MCV 90.1 fL (80-95); MPV 10.3 fL (8.0-11.0); Platelet Count 319 10^3/uL (130-400); RBC 5.54 10^6/uL (4.36-5.78); RDW 12.3 % (11.8-14.1); RDW-SD 40.9 fL; WBC 11.28 10^3/uL (4.4-10.8)
[2020-08-09 19:28] LABS: Hemoglobin A1C 10.2 % (<5.7)
== END 2020-08-09 19:50 ==
LOC: LBN 19:30
PROVIDERS: PCP Nurse Practitioner Family; Visit Provider Surgery
DX: I10 Essential (primary) hypertension (principal); R73.9 Hyperglycemia, unspecified; R79.89 Other specified abnormal findings of blood chemistry; F17.200 Nicotine dependence, unspecified, uncomplicated; K21.9 Gastro-esophageal reflux disease without esophagitis; G47.33 Obstructive sleep apnea (adult) (pediatric)
CPT/HCPCS: 80053; 85027; 83036

== ENCOUNTER → 2020-10-24 07:59 | Outpatient (REF) | payer BC, SELFPAY ==
[2020-10-24 14:53] LABS: Abs Immature Grans 0.05 10^3/uL (0.0-0.06); Absolute Basophil Count 0.07 10^3/uL (0.0-0.2); Absolute Eosinophil Count 0.27 10^3/uL (0.0-0.7); Absolute Lymphocyte Count 3.12 10^3/uL (1.2-3.4); Absolute Monocyte Count 0.86 10^3/uL (0.1-0.8); Absolute Neutrophil Count 6.86 10^3/uL (1.2-6.7); Basophils % 0.6; Eosinophils % 2.4; HCT 48.9 % (40.0-50.0); HGB 16.4 g/dL (13.5-17.5); Immature Grans % 0.4; Lymphocytes % 27.8; MCH 30.2 pg (27.0-33.0); MCHC 33.5 % (32.0-36.0); MCV 90.1 fL (80-95); MPV 10.2 fL (8.0-11.0); Monocytes % 7.7; Neutrophils % 61.1; Nucleated RBC 0 %; Platelet Count 329 10^3/uL (130-400); RBC 5.43 10^6/uL (4.36-5.78); RDW 12.1 % (11.8-14.1); RDW-SD 39.7 fL; WBC 11.23 10^3/uL (4.4-10.8)
[2020-10-24 15:06] LABS: BUN 17 mg/dL (7-18); Calcium 9.2 mg/dL (8.5-10.1); Calculated LDL 187 mg/dL (<100); Chloride 100 mmol/L (98-107); Cholesterol 268 mg/dL (<200); Glucose 313 mg/dL (74-106); HDL Cholesterol 39 mg/dL (40-60); Potassium 4.3 mmol/L (3.5-5.1); Sodium 138 mmol/L (136-145); Triglyceride 211 mg/dL (<150)
== END ==
LOC: NCHCN 07:59
PROVIDERS: PCP Nurse Practitioner Family; Visit Provider Nurse Practitioner Family
DX: I10 Essential (primary) hypertension (principal); Z00.00 Encounter for general adult medical examination without abnormal findings
CPT/HCPCS: 80048; 80061; 85025

== ENCOUNTER 2022-02-14 09:24 | Outpatient (REF) | payer BC, SELFPAY ==
[2022-02-14 16:32] LABS: Anion Gap 11.1 mmol/L (3-11); BUN 20 mg/dL (7-18); CO2 25.9 mmol/L (21.0-32.0); CREATININE 0.9 mg/dL (0.70-1.30); Calcium 9.1 mg/dL (8.5-10.1); Calculated LDL 171 mg/dL (<100); Chloride 100 mmol/L (98-107); Cholesterol 241 mg/dL (<200); Glucose 255 mg/dL (74-106); HDL Cholesterol 43 mg/dL (40-60); Potassium 4.6 mmol/L (3.5-5.1); Sodium 137 mmol/L (136-145); Triglyceride 139 mg/dL (<150)
== END 2022-02-14 09:25 | disposition home or self-care (01) ==
LOC: NCHCN 09:24
PROVIDERS: PCP Nurse Practitioner Family; Visit Provider Nurse Practitioner Family
DX: E11.9 Type 2 diabetes mellitus without complications (principal); I10 Essential (primary) hypertension; E78.5 Hyperlipidemia, unspecified
CPT/HCPCS: 80048; 80061

== ENCOUNTER 2023-10-22 09:12 | Outpatient (REF) | payer BC, SELFPAY ==
[2023-10-22 20:28] LABS: Hemoglobin A1C 8.6 % (<5.7)
[2023-10-22 20:50] LABS: ALT 25 U/L (16-63); AST 12 U/L (15-37); Albumin 3.8 g/dL (3.4-5.0); Alkaline Phosphatase 87 U/L (46-116); Anion Gap 7.1 mmol/L (3-11); BUN 18 mg/dL (7-18); Bilirubin, Total 0.4 mg/dL (0.2-1.0); CO2 30.9 mmol/L (21.0-32.0); CREATININE 0.9 mg/dL (0.70-1.30); Calcium 9.6 mg/dL (8.5-10.1); Calculated LDL 162 mg/dL (<100); Chloride 100 mmol/L (98-107); Cholesterol 223 mg/dL (<200); Estimated GFR 105.35 (mL/min/1.73m2); Glucose 168 mg/dL (74-106); HDL Cholesterol 42 mg/dL (40-60); Potassium 4.4 mmol/L (3.5-5.1); Sodium 138 mmol/L (136-145); Total Protein 7.6 g/dL (6.4-8.2); Triglyceride 99 mg/dL (<150)
[2023-10-22 21:58] LABS: COMMENT (LAB VIEW ONLY) 86.45 mg/dL
[2023-10-22 22:01] LABS: Microalb ug/mg Crea 220.6 ug/mg Cr
== END 2023-10-22 09:13 | disposition home or self-care (01) ==
LOC: NCHCN 09:12
PROVIDERS: PCP Nurse Practitioner Family; Visit Provider Physician Assistant
DX: E11.9 Type 2 diabetes mellitus without complications (principal); E78.5 Hyperlipidemia, unspecified; E27.9 Disorder of adrenal gland, unspecified
CPT/HCPCS: 80053; 80061; 82533; 82043; 82570; 83036

== ENCOUNTER 2024-01-23 09:06 | Day surgery (SDC) | payer BC, SELFPAY ==
--- NOTE | 2024-01-22 19:00 | PDOC.DSDIS_ITS ---
Date of service: 01/23/24 Time of Service: 11:35 Discharge Plan Disposition Patient Disposition: Home Condition: Good Discharge Details Reason For Visit: Umbilical hernia repair Attending Provider: Sunil Mojica Primary Care Provider: Taj Copeland Home Meds and New Rx's Prescriptions: New tramadol 50 mg tablet 50 mg PO Q8H PRNQty: 12 0RF Rx Instructions: Take 1 tablet by mouth up to every 8 hours if needed for more severe pain. Continued hydrochlorothiazide 25 mg tablet 25 mg PO DAILY losartan 100 mg tablet 100 mg PO DAILY amlodipine 5 mg tablet 5 mg PO DAILY atorvastatin 40 mg tablet 40 mg PO QHS clotrimazole 1 % cream 1 applic topical BID Jardiance 10 mg tablet 10 mg PO DAILY metformin 1,000 mg tablet 1,000 mg PO BID omeprazole 20 mg capsule,delayed release(DR/EC) 20 mg PO DAILY Ozempic 0.25 mg or 0.5 mg (2 mg/3 mL) pen injector 0.5 mg subcut QWEEK Rx Instructions: for 4 weeks Discharge Instructions Instructions: Umbilical Hernia Repair (GEN) Additional Instructions: Guero, we were able to fix your hernia today just like we talked about. I did im plant a permanent mesh underneath of the repair which will hopefully prevent this from ever coming back. Expect to have some pain over the coming days as everything starts to heal. I have added a prescription for a medication called tramadol to use if Tylenol and ibuprofen are not enough to keep you comfortable. Expect to have some bruising around the bellybutton site. This is extremely common and nothing to worry about. If you notice that the skin starts turning red, or there is any discharge from the wound, I would like to know about that. Hopefully you will feel well soon, I look forward to seeing you in the office in follow-up. 1. Resume all of your medications. 2. Use heating pads and ice packs on the incision to help with pain 3. Alternate over the counter tylenol and ibuprofen every 6 hours for two days, then use as needed. Use tramadol if needed for more severe pain. 4. Leave bandage in place for 24 hours, then remove. 5. Shower with warm soapy water. Pat dry. Use a bandaid if needed to protect your clothing. 6. No soaking or tub baths until I see you in the office. 7. No heavy lifting until I see you in the office. 8. Call the office (or go directly to the emergency room after hours) if you notice any of the following: Develop chills (warm to touch), or if you have a thermometer and your temperature is above 101 Difficulty breathing or difficultly swallowing Persistent vomiting Any bleeding ? exceeding one tablespoon 9. Call your physician if the site where your intravenous was started becomes red, swollen, painful, and warm to touch. Activity:: No heavy lifting Remove Dressings/Wound Care:: 24 hours Shower/Bathe:: 24 hours Diet:: As Tolerated Discharge Orders Discharge Orders: Discharge Order (Routine); Ordered 01/22/24 Ordered By: Sunil Mojica DS: Diagnosis Discharge Diagnosis (1) Hernia, umbilical: Asessment and Plan: Outpatient postoperative follow-up
--- NOTE | 2024-01-22 19:03 | ROE_ITS ---
Date of service: 01/23/24 Time of Service: 11:38 Operative Note Operative Note DATE OF PROCEDURE: 01/23/24 PRE-OP DIAGNOSIS: Umbilical Hernia POST-OP DIAGNOSIS: same PROCEDURE: Open umbilical hernia repair with mesh SURGEON: Sunil Mojica LAY OUT MAKER: Viry Morrow ANESTHESIA TYPE: Local By Surgeon and General LMA/ETT Refer to Anesthesia Record ESTIMATED BLOOD LOSS: 25 COMPLICATIONS: None Patient was transported to: PACU Patient's condition: stable Implants: Ventralex umbilical hernia patch Indications: Guero is a 48-year-old male with an enlarging and sometimes painful umbilical hernia. Procedure Description: After the induction of general endotracheal anesthesia, I prepped and draped the anterior abdominal wall in the usual fashion. Next, I established a generous field block of the umbilicus. I then made a semielliptical incision along the upper aspect of the umbilical fold. I dissected down to the fascia, and carefully isolated the umbilical stalk. This was quite adherent to the underside of the umbilical skin. Careful dissection was used to ensure an adequate skin flap. Once this was complete, I dissected free the edge of the fascia. The hernia extended a bit cephalad above the level of the fascia, and did require opening of the hernia sac to fully expose and reduce it. It contained omental fat. Once all of the omentum was reduced back down into the peritoneal cavity, I dissected out the remainder of the fascial edge. It was all healthy appearing. The sizes of the hernia measured approximately 4 cm from top to bottom and about 3-1/2 cm from [id number]. Therefore, I selected the 6 cm Ventralex patch and delivered it into the peritoneal space. Great care was taken to ensure appropriate coverage underneath of the defect. It was pexied in place to the fascia with interrupted Prolene sutures. Next, the fascia was closed in a horizontal fashion with 0 Prolene stitches. The skin and subcutaneous tissues were irrigated, and I then affixed to the underside of the umbilicus down towards the fascia to help with cosmesis. The umbilical skin appeared viable and healthy. Next, the deep skin and subcutaneous tissues were approximated with interrupted Vicryl sutures, and the skin was finally closed with running subcuticular stitches. Bandages were applied, the patient was allowed awaken from anesthesia and transferred to the recovery unit.
--- NOTE | 2024-01-22 19:03 | W.PREOPHP ---
Assessment and Plan Assessment and plan (1) Hernia, umbilical: Assessment and plan: We reviewed the plan for an open inguinal herniorrhaphy with implantation of a permanent mesh again today. He had the opportunity to ask any other questions. I think he has a great understanding of what to expect. We can proceed as planned. History of Present Illness History of Present Illness Chief Complaint: Umbilical hernia Narrative: He is 48 years old, he has been dealing with an umbilical hernia for many years. He thinks it has been present for at least 5 if not 10 or more years. He does notice a little more from time to time, as the size of it has increased a bit since his last visit. He describes the pain as a little bit sharp around the bellybutton, mostly with movement. He is never able to reduce it completely. He denies any nausea, vomiting, or other obstructive symptoms. Other past medical history includes hypertension, is a little bit improved since his last visit, as well as diabetes. He has had a marked improvement in his hemoglobin A1c after starting Jardiance and Ozempic. He has never had any abdominal surgery before. He has an allergy to penicillin. Since his last office visit, he had a little more discomfort with the umbilical hernia from time to time, but otherwise seems to be in his usual state of health. PFSH All Active Problems Hyperlipidemia (Acute) Disorder of adrenal gland (Acute) Type 2 diabetes mellitus without complication (Acute) Elevated LFTs (Acute) Elevated serum creatinine (Acute) Smoker unmotivated to quit (Acute) Blood glucose elevated (Acute) Hypertension (Acute) Effusion of left knee (Acute) Aspiration: 07/08/2019; 06/21/2018 Medical History COPD (chronic obstructive pulmonary disease) Adrenal nodule Tobacco dependence GERD (gastroesophageal reflux disease) Obesity PATRICK (obstructive sleep apnea) Joint effusion, knee Hernia, umbilical Social History Smoking/Tobacco Use Status: Current every day Tobacco Type: cigarettes Smoking risk assessment performed?: Yes Alcohol Intake: current Alcohol Intake frequency: holidays/special occasions only Drug use: Never Substance use type: does not use Housing: house Current gender identity: male Do you feel safe at home: Yes Do you feel safe in your relationship?: Yes Meds Allergies and Home Medications Allergies Allergy/AdvReac Type Severity Reaction Status Date / Time Penicillins Allergy Unknown Other (See Verified 01/23/24 09:14 Comment) Home Medications Medication Instructions Recorded Confirmed Type hydrochlorothiazide 25 mg tablet 25 mg PO DAILY 08/08/20 01/23/24 History losartan 100 mg tablet 100 mg PO DAILY 08/08/20 01/23/24 History amlodipine 5 mg tablet 5 mg PO DAILY 11/05/23 01/23/24 History atorvastatin 40 mg tablet 40 mg PO QHS 11/05/23 01/23/24 History clotrimazole 1 % topical cream 1 applic topical BID 11/05/23 01/20/24 History empagliflozin 10 mg tablet 10 mg PO DAILY 11/05/23 01/20/24 History (Jardiance) metformin 1,000 mg tablet 1,000 mg PO BID 11/05/23 01/23/24 History omeprazole 20 mg capsule,delayed 20 mg PO DAILY 11/05/23 01/23/24 History release semaglutide 0.25 mg or 0.5 mg (2 0.5 mg subcut QWEEK 11/05/23 01/20/24 History mg/3 mL) subcutaneous pen injector (Ozempic) Exam Const General: cooperative, healthy appearing and not in acute distress Neck Neck: normal visual inspection, no lymphadenopathy and supple Thyroid: thyroid normal Resp Effort & Inspection: normal respiratory effort Auscultation: clear to auscultation bilaterally Cardio Jugular venous pressure: no JVD Rate: regular rate Rhythm: regular rhythm Heart Sounds: S1 normal and S2 normal GI Inspection: normal to inspection Palpation: soft, no guarding, hernia (Reducible umbilical) and nontender Percussion: normal to percussion Auscultation: normal bowel sounds Neuro General: patient alert, patient awake and patient oriented x3 Psych Appearance: grossly normal
[2024-01-23] VITALS (10 sets, daily range): BP systolic 90–163; BP diastolic 44–106; PULSE 71–92; RESP 13–20; TEMP 36.3–36.6; O2SAT 92–100; BMI 32.3
[2024-01-23] MEDS: Celecoxib 200 MG CAP PO (09:43)
[2024-01-23] MEDS: Acetaminophen 500 MG TAB 1000 MG PO (09:43)
[2024-01-23] MEDS: Gabapentin 300 MG CAP 600 MG PO (09:43)
[2024-01-23] MEDS: Lactated Ringers 1,000 ML 80 ML IV (09:47)
--- NOTE | 2024-01-23 09:57 | W.ANESPRE ---
General Info Date of Service Date Performed: 01/23/24 Height: 5 ft 9 in Weight: 99.2 kg Body Mass Index (BMI): 32.3 Surgical Procedure: Operation Date: 01/23/24 10:40 Proposed Procedure Side Surgeon p Herniorrhaphy Umbilical Sunil Mojica MD Meds Allergies and Home Medications Allergies Allergy/AdvReac Type Severity Reaction Status Date / Time Penicillins Allergy Unknown Other (See Verified 01/23/24 09:14 Comment) Home Medication Medication Instructions Recorded hydrochlorothiazide 25 mg tablet 25 mg PO DAILY 08/08/20 losartan 100 mg tablet 100 mg PO DAILY 08/08/20 amlodipine 5 mg tablet 5 mg PO DAILY 11/05/23 atorvastatin 40 mg tablet 40 mg PO QHS 11/05/23 clotrimazole 1 % topical cream 1 applic topical BID 11/05/23 empagliflozin 10 mg tablet 10 mg PO DAILY 11/05/23 (Jardiance) metformin 1,000 mg tablet 1,000 mg PO BID 11/05/23 omeprazole 20 mg capsule,delayed 20 mg PO DAILY 11/05/23 release semaglutide 0.25 mg or 0.5 mg (2 0.5 mg subcut QWEEK 11/05/23 mg/3 mL) subcutaneous pen injector (Ozempic) Current Visit Medications: Current Medications Generic Name Dose Route Start Last Admin Trade Name Freq PRN Reason Stop Dose Admin Acetaminophen 1,000 mg 01/23/24 06:00 01/23/24 09:43 Acetaminophen 500 Mg Tab PO 01/23/24 16:00 1,000 mg PREOP KAYLYN Administration Celecoxib 200 mg 01/23/24 06:00 01/23/24 09:43 Celecoxib 200 Mg Cap PO 01/23/24 16:00 200 mg PREOP KAYLYN Administration Gabapentin 600 mg 01/23/24 06:00 01/23/24 09:43 Gabapentin 300 Mg Cap PO 01/23/24 16:00 600 mg PREOP KAYLYN Administration Hydromorphone HCl 0.2 mg 01/22/24 19:04 Hydromorphone 2 Mg/Ml Syr IVP 02/21/24 19:03 Q1H PRN PRN Ringer's Solution 1,000 mls @ 80 mls/hr 01/23/24 06:00 01/23/24 09:47 IV 02/21/24 23:59 80 mls/hr INFUSION KAYLYN Administration Cefazolin Sodium/Dextrose 2 gm in 50 mls @ 100 mls/hr 01/23/24 06:00 Ancef Duplex IVPB 01/23/24 16:00 PREOP KAYLYN IV Miscellaneous Supplies 1 each 01/23/24 06:00 Iv Access IV 02/21/24 23:59 DIRECTED KAYLYN Sodium Chloride 0 ml 01/23/24 06:00 Normal Saline Flush 10 Ml Syr IV 02/21/24 23:59 PRN PRN Sodium Chloride 0 ml 01/23/24 06:00 Normal Saline 10 Ml Vial IJ 02/21/24 23:59 DIRECTED PRN Sterile Water 0 ml 01/23/24 06:00 Water,Injection,Sterile 10 Ml Vial IJ 02/21/24 23:59 DIRECTED PRN Tramadol HCl 100 mg 01/22/24 19:04 Tramadol 50 Mg Tab PO 02/21/24 19:03 Q6H PRN PRN Pain PFSH Active Problems Active Problems: Problem Status Onset Code Hyperlipidemia E78.5 Disorder of adrenal gland E27.9 Type 2 diabetes mellitus without complication E11.9 Elevated LFTs R79.89 Elevated serum creatinine R79.89 Smoker unmotivated to quit F17.200 Blood glucose elevated R73.9 Hypertension I10 Effusion of left knee M25.462 Medical History Medical History COPD (chronic obstructive pulmonary disease) Adrenal nodule Tobacco dependence GERD (gastroesophageal reflux disease) Obesity PATRICK (obstructive sleep apnea) Joint effusion, knee Hernia, umbilical Tobacco Smoking/Tobacco Use Status: Current every day Tobacco Type: cigarettes Alcohol Alcohol Intake: current Alcohol intake frequency: holidays/special occasions only Substance Use Substance use: Never Substance use type: does not use Vital Signs and Lab Results Vital Signs Most Recent Vital Signs in EMR: Most Recent Vital Signs Temp Pulse Resp BP Pulse Ox 36.6 C 92 H 18 163/106 H 100 01/23/24 09:30 01/23/24 09:30 01/23/24 09:30 01/23/24 09:30 01/23/24 09:30 Point of Care Results Point of Care Results: Finger Stick Blood Glucose 145 01/23/24 09:20 Lab Results Blood Type / Crossmatch: No Data to Display Complete Blood Count: No Data to Display Complete Metabolic Panel: No Data to Display Liver Function Panel: No Data to Display Coagulation Panel: No Data to Display Cardiac Panel: No Data to Display Arterial Blood Gas: No Data to Display Venous Blood Gas: No Data to Display Pancreas Panel: No Data to Display Thyroid Panel: No Data to Display Infectious Disease: No Data to Display Blood Cultures: No Data to Display Toxicology Panel: No Data to Display Anesthesia Assessment and Plan Anesthesia History Personal History: No History of General Anesthesia Family History: No Family History of Anesthesia Complications Exercise Tolerance Exercise Tolerance: Metabolic Equivalents>4 Pertinent Negatives Pertinent Negatives: No Major Cardiovascular Symptoms or Complaints, No Major Pulmonary Symptoms or Complaints and No History of CVA/TIA Cardiac & Pulmonary Exam Cardiac Exam: Normal S1/S2 Heart Sounds Pulmonary Exam: Clear Bilateral Breath Sounds (dim throughout ) Implantable Cardiac Device Does patient have a Pacemaker or an ICD?: No Airway Exam Known Difficult Airway: No Mallampati Class: 2 Mouth Opening: Normal (> 3cm) Thyromental Distance: Greater than 3 cm Neck Range of Motion: Full ROM Neck Circumference: Thick Teeth Condition: Normal Dentition ASA Classification ASA Score: ASA 2 Emergency Case?: No NPO Status NPO Status: NPO Clears >2 hours, Solids >8 hours Anesthesia Plan Resuscitation Status: Full Code Anesthesia Technique: General Anesthesia Airway Planned: Endotracheal Tube Monitors Used: Standard Monitors and SedLine Preoperative Comments:: pt reports medication controlled reflux with no s/s this am
[2024-01-23] MEDS: ceFAZolin 2 GM/50 ML BAG IVPB (10:36)
[2024-01-23] MEDS: Normal Saline 100 ML 360 ML (10:41)
[2024-01-23] MEDS: Tranexamic Acid 1,000 MG/10 ML VIAL 1000 MG (10:41)
[2024-01-23] MEDS: Bupivacaine 0.25% Pres-Free 30 ML VIAL (11:30)
[2024-01-23] MEDS: HYDROmorphone 2 MG/ML SYR IVP (12:18)
--- NOTE | 2024-01-23 13:34 | W.ANESPOSTOP ---
Postoperative Evaluation Date, Time and Location Date Performed: 01/23/24 Time Performed: 13:34 Patient Location: Day Surgery Unit Vital Signs Most Recent Imported Vital Signs: Most Recent Vital Signs Temp Pulse Resp BP Pulse Ox 36.3 C L 82 16 126/89 98 01/23/24 13:02 01/23/24 13:02 01/23/24 13:02 01/23/24 13:02 01/23/24 13:02 Pain Score Most Recent Pain Score: Most Recent Pain Score Pain Level 5 01/23/24 13:02 Assessment Mental Status: Awake (Alert & Oriented to Patient Baseline) Airway and Respiratory Function: Patent airway with normal (patient baseline) respiratory exam Cardiovascular Function: Hemodynamically Stable Hydration Status: Adequately Hydrated Nausea & Vomiting: No Nausea or Vomiting Pain: Pain is tolerable per patient Peripheral Nerve Block: Patient did not receive a nerve block Postoperative Comments:: Patient with edematous and friable airway during case (please see anesthesia case). Discussed care at length with patient. I do believe this is a chronic presentation and discussed potential relation to smoking, PATRICK, or GERD. Highest concern is sore throat and uvitis, should resolve in a few days. I do not believe at this time this was histamine or bradykinin mediated and the patient is safe to go home. I did educate that if further airway edema, other than uvitis, were to occur he should proceed to call 911 or head to the ER. Patient fiance at bedside and was present for all discussion and education. All questions answered.
[2024-01-23] MEDS: traMADol 50 MG TAB 100 MG PO (13:51)
== END 2024-01-23 14:25 | disposition home or self-care (01) ==
LOC: SUR 09:07
PROVIDERS: PCP Physician Assistant; Visit Provider Surgery
PROC: (CPT 49593; principal; 2024-01-23 10:30)
DX: K42.9 Umbilical hernia without obstruction or gangrene (principal); E11.9 Type 2 diabetes mellitus without complications; I10 Essential (primary) hypertension; F17.210 Nicotine dependence, cigarettes, uncomplicated; G47.33 Obstructive sleep apnea (adult) (pediatric); E66.9 Obesity, unspecified; E78.5 Hyperlipidemia, unspecified; Z68.32 Body mass index [BMI] 32.0-32.9, adult
CPT/HCPCS: 49593; C1781; J0665; J0690; J1100; J1170; J1805; J2001; J2250; J2371; J2405; J2704

== ENCOUNTER 2024-05-04 14:00 | Outpatient (REF) | payer BC, SELFPAY ==
[2024-05-04 15:33] LABS: Hemoglobin A1C 7.4 % (<5.7)
[2024-05-04 15:39] LABS: ALT 31 U/L (16-63); AST 13 U/L (15-37); Albumin 4.2 g/dL (3.4-5.0); Alkaline Phosphatase 134 U/L (46-116); Anion Gap 9.9 mmol/L (3-11); BUN 25 mg/dL (7-18); Bilirubin, Total 0.64 mg/dL (0.2-1.0); CO2 29.1 mmol/L (21.0-32.0); CREATININE 1.1 mg/dL (0.70-1.30); Calcium 10.1 mg/dL (8.5-10.1); Calculated LDL 102 mg/dL (<100); Chloride 102 mmol/L (98-107); Cholesterol 189 mg/dL (<200); Estimated GFR 82.81 (mL/min/1.73m2); Glucose 161 mg/dL (74-106); HDL Cholesterol 60 mg/dL (40-60); Sodium 141 mmol/L (136-145); Total Protein 7.9 g/dL (6.4-8.2); Triglyceride 136 mg/dL (<150)
[2024-05-04 16:13] LABS: COMMENT (LAB VIEW ONLY) 50.97 mg/dL
[2024-05-04 16:14] LABS: Microalb ug/mg Crea 109.7 ug/mg Cr
== END 2024-05-04 14:01 | disposition home or self-care (01) ==
LOC: NCHCN 14:00
PROVIDERS: PCP Physician Assistant; Visit Provider Physician Assistant
DX: E11.9 Type 2 diabetes mellitus without complications (principal)
CPT/HCPCS: 80053; 80061; 82043; 82570; 83036

== ENCOUNTER 2024-05-20 01:10 | Outpatient (CLI) | payer BC, SELFPAY ==
[2024-05-24 15:29] LABS: Metanephrine, Free <0.20 nmol/L (<0.50); Normetanephrine, Free 0.41 nmol/L (<0.90)
[2024-05-25 12:46] LABS: Renin Activity, Plasma 3.6 ng/mL/h
== END 2024-05-20 01:11 | disposition home or self-care (01) ==
LOC: LBO 01:10
PROVIDERS: PCP Physician Assistant; Visit Provider Urology
DX: N28.89 Other specified disorders of kidney and ureter (principal)
CPT/HCPCS: 36415; 82533; 82088; 83835; 84244

== ENCOUNTER 2024-08-16 15:37 | Outpatient (REF) | payer BC, SELFPAY | END 2024-08-16 15:38 | disposition home or self-care (01) | LOC: LBN 15:37 | PROVIDERS: PCP Physician Assistant; Visit Provider Student in an Organized Health Care Education/Training Program | DX: N28.89 Other specified disorders of kidney and ureter (principal) | CPT/HCPCS: 87086 ==

== ENCOUNTER 2024-09-23 21:55 | Outpatient (REF) | payer BC, SELFPAY ==
[2024-09-23 18:57] LABS: Abs Immature Grans 0.03 10^3/uL (0.0-0.06); Absolute Basophil Count 0.06 10^3/uL (0.0-0.2); Absolute Eosinophil Count 0.19 10^3/uL (0.0-0.7); Absolute Monocyte Count 0.78 10^3/uL (0.1-0.8); Absolute Neutrophil Count 5.78 10^3/uL (1.2-6.7); Basophils % 0.6 %; Eosinophils % 1.9 %; HGB 15.2 g/dL (13.5-17.5); Immature Grans % 0.3 %; Lymphocytes % 31.2 %; MCH 31.2 pg (27.0-33.0); MCHC 33.8 % (32.0-36.0); MCV 92 fL (80-95); MPV 9.4 fL (8.0-11.0); Monocytes % 7.8 %; Neutrophils % 58.2 %; Platelet Count 329 10^3/uL (130-400); RBC 4.87 10^6/uL (4.36-5.78); RDW 12.4 % (11.8-14.1); RDW-SD 42.6 fL; WBC 9.94 10^3/uL (4.4-10.8)
[2024-09-23 19:19] LABS: ALT 30 U/L (16-63); AST 15 U/L (15-37); Albumin 3.7 g/dL (3.4-5.0); Alkaline Phosphatase 130 U/L (46-116); BUN 20 mg/dL (7-18); Bilirubin, Total 0.38 mg/dL (0.2-1.0); CREATININE 1.1 mg/dL (0.70-1.30); Calcium 9.3 mg/dL (8.5-10.1); Chloride 104 mmol/L (98-107); Estimated GFR 82.29 (mL/min/1.73m2); Glucose 140 mg/dL (74-106); Potassium 4.1 mmol/L (3.5-5.1); Sodium 142 mmol/L (136-145); TSH (W/Ref FT4) 0.03 uIU/mL (0.36-3.74); Total Protein 7.4 g/dL (6.4-8.2)
[2024-09-23 20:09] LABS: FREE T4 1.25 ng/dL (0.76-1.46); Lipase 26 U/L (16-77)
== END 2024-09-23 21:56 | disposition home or self-care (01) ==
LOC: NCHCN 21:55
PROVIDERS: PCP Physician Assistant; Visit Provider Physician Assistant
DX: R10.9 Unspecified abdominal pain (principal); R00.0 Tachycardia, unspecified
CPT/HCPCS: 80053; 83690; 84439; 84443; 85025

== ENCOUNTER 2024-10-10 01:37 | Emergency (ER) | payer BC, SELFPAY ==
[2024-10-10] VITALS (26 sets, daily range): BP systolic 110–162; BP diastolic 88–120; PULSE 64–112; RESP 13–26; TEMP 37; O2SAT 95–99
--- NOTE | 2024-10-10 01:45 | RT.EKG_ITS ---
APPROVED REPORT Exam: Resting ECG Reason for Exam: shortness of breath Patient Location: E HR:97 bpm ECG Measurements Heart Rate 97 AXIS NH 178 P 44 QRSd 163 QRS 98 QT 384 T 44 QTc 488 Conclusion Sinus rhythm...normal P axis, V-rate 60- 99 Probable left atrial enlargement...P >50mS, <-0.10mV V1 RBBB and LPFB...QRSd >120mS, axis(90,210) no ST segment or T wave abnormalities to suggest occlusive OK
[2024-10-10 02:15] LABS: Lactate 1.8 mmol/L (0.6-1.4)
[2024-10-10 02:17] LABS: Abs Immature Grans 0.03 10^3/uL (0.0-0.06); Absolute Basophil Count 0.08 10^3/uL (0.0-0.2); Absolute Eosinophil Count 0.13 10^3/uL (0.0-0.7); Absolute Lymphocyte Count 3.98 10^3/uL (1.2-3.4); Absolute Monocyte Count 1.07 10^3/uL (0.1-0.8); Absolute Neutrophil Count 7.43 10^3/uL (1.2-6.7); Basophils % 0.6 %; HCT 49.8 % (40.0-50.0); HGB 16.8 g/dL (13.5-17.5); Immature Grans % 0.2 %; Lymphocytes % 31.3 %; MCH 30.6 pg (27.0-33.0); MCHC 33.7 % (32.0-36.0); MCV 91 fL (80-95); MPV 8.8 fL (8.0-11.0); Monocytes % 8.4 %; Neutrophils % 58.5 %; Platelet Count 474 10^3/uL (130-400); RBC 5.49 10^6/uL (4.36-5.78); RDW 12.6 % (11.8-14.1)
[2024-10-10] MEDS: Ketorolac 15 MG/ML VIAL IVP (02:23)
[2024-10-10] MEDS: Metoclopramide 10 MG/2 ML VIAL IVP (02:24)
[2024-10-10] MEDS: ACETAMINOPHEN 1,000 MG/100 ML BAG 400 MG IVPB (02:24)
[2024-10-10 02:33] LABS: Bilirubin Small (Negative); Blood Negative (Negative); Clarity Clear (Clear); Glucose 100 mg/dL (Negative); Ketones Trace mg/dL (Negative); Leukocyte Esterase Negative (Negative); Nitrite Negative (Negative); Specific Gravity >= 1.030 (1.005-1.025); Urobilinogen 0.2 mg/dL (Up to 0.2); pH 5.5 (5-8)
[2024-10-10 02:37] LABS: Bacteria Few HPF (Negative); C & S Indicated? No; Casts 0-2 Hyaline LPF (Negative); Crystals Negative HPF (Negative); Epithelial Cells Moderate HPF (Negative); Mucus Trace (Negative); RBC 0-2 HPF (0-2)
[2024-10-10 02:43] LABS: ALT 23 U/L (16-63); AST 11 U/L (15-37); Albumin 3.8 g/dL (3.4-5.0); Alkaline Phosphatase 127 U/L (46-116); Anion Gap 10.4 mmol/L (3-11); BUN 20 mg/dL (7-18); Bilirubin, Total 0.55 mg/dL (0.2-1.0); CO2 28.6 mmol/L (21.0-32.0); CREATININE 1.3 mg/dL (0.70-1.30); Chloride 103 mmol/L (98-107); Estimated GFR 67.34 (mL/min/1.73m2); Glucose 157 mg/dL (74-106); Lipase 22 U/L (<78); Potassium 3.8 mmol/L (3.5-5.1); Sodium 142 mmol/L (136-145); TSH (W/Ref FT4) 0.09 uIU/mL (0.36-3.74); Total Protein 8.1 g/dL (6.4-8.2)
[2024-10-10 02:47] LABS: D-Dimer 282 ng/mlFEU (<500)
[2024-10-10 03:02] LABS: FREE T4 1.26 ng/dL (0.76-1.46)
--- NOTE | 2024-10-10 03:06 | W.ED.GENAD ---
Discharge Plan Disposition Patient Disposition: Home Condition: Good Discharge Details Clinical Impression: Nausea, Abdominal pain Primary Care Provider: Taj Copeland ED Provider: Shanda Marquez Home Meds and New Rx's Prescriptions: New metoclopramide HCl [Reglan] 5 mg tablet 5 mg PO BID Qty: 7 0RF Rx Instructions: administer 30 minutes before meals Continued hydrochlorothiazide 25 mg tablet 25 mg PO DAILY losartan 100 mg tablet 100 mg PO DAILY amlodipine 5 mg tablet 5 mg PO DAILY atorvastatin 40 mg tablet 40 mg PO QHS Jardiance 10 mg tablet 10 mg PO DAILY omeprazole 20 mg capsule,delayed release(DR/EC) 20 mg PO DAILY Discharge Instructions Instructions: Abdominal Pain, Adult ED Additional Instructions: Your bloodwork and CT scan are reassuring and do not show any clear cause for your abdominal pain. You can take tylenol and ibuprofen over the counter for pain; follow the directions on the bottle. You can take metoclopramide up to every 12 hours as needed for nausea. Do not take this medication more frequently because it can lead to cardiac arrhythmias. Please call your primary care doctor on Friday to schedule an appointment for within the following 48 hours to followup on your visit here. At that visit please discuss: -your abdominal pain and nausea, and your CT results from today -your thyroid levels (low TSH and normal T4) -your EKG which shows some changes from 7 years ago -protein and glucose in your urine (this can be from diabetes or other causes) Return to the emergency department for new or worsening symptoms including new/different/worse abdominal pain, chest pain, shortness of breath, palpitations, feeling like you are going to pass out, passing out, blood in your stool, fever, or if you have any other concerns. Referrals: Taj Copeland [Primary Care Provider] - Discharge Data Discharge Date/Time-TO BE ENTERED AT DEPARTURE: 10/10/24 04:22 HPI General Mode of arrival: ambulatory. Date/Time Provider Initiated Documentation: 10/10/24 01:57. Limitations to Documentation: no limitations. Information obtained by: patient. HPI Narrative: 49yo M with reported hx of renal cancer with partial nephrectomy two months ago, presenting for diffuse crampy abdominal pain and nausea with dry heaving. Symptoms have been present intermittently frequently over the past two months since his surgery. Has seen his PCP for this. For the past two days symptoms have been more constant and somewhat worse in severity for which reason he presents to the ED. Pain is dull, crampy, and moderate to severe in intensity. No flank pain, back pain, dysuria, or hematuria. Has not taken anything at home for pain. Nausea is persistent and associated with dry heaving, no vomiting. Last BM yesterday, soft/formed/brown. Decreased PO intake over the last two months and thinks he has lost a fair amount of weight. Otherwise in his usual state of health with no fevers, chills, rash, chest pain, shortness of breath, or other concerns. (nursing triage states SOB, pt denies this to me). Related Data Home Medications ?Medication ?Instructions ?Recorded ?Confirmed hydrochlorothiazide 25 mg tablet 25 mg PO DAILY 08/08/20 10/10/24 losartan 100 mg tablet 100 mg PO DAILY 08/08/20 10/10/24 amlodipine 5 mg tablet 5 mg PO DAILY 11/05/23 10/10/24 atorvastatin 40 mg tablet 40 mg PO QHS 11/05/23 10/10/24 empagliflozin 10 mg tablet 10 mg PO DAILY 11/05/23 10/10/24 (Jardiance) omeprazole 20 mg capsule,delayed 20 mg PO DAILY 11/05/23 10/10/24 release metoclopramide HCl 5 mg tablet 5 mg PO BID #7 tabs 10/10/24 (Reglan) Previous Rx's ?Medication ?Instructions ?Recorded metoclopramide HCl 5 mg tablet 5 mg PO BID #7 tabs 10/10/24 (Reglan) Allergies Allergy/AdvReac Type Severity Reaction Status Date / Time Penicillins Allergy Unknown Other (See Verified 10/10/24 01:47 Comment) General Stated Complaint: Abd Prob REGULO: 3 Review of Systems Narrative: see HPI Exam Narrative Exam Narrative: General: Alert, well appearing, well nourished, in no acute distress. Head: Normocephalic, atraumatic Neck: Trachea midline, ?Neck supple. ENT: ?MMM.? No oropharygeal lesions or exudate. Cardiac: ?RRR, no murmurs appreciated Resp: No respiratory distress. CTAB. Abd: ?Soft, non-distended, nontender : ?No suprapubic tenderness. Extremities: ?No deformities.? No peripheral edema. Neurologic: GCS 15. ? Moves all extremities freely against gravity Course Vital Signs Vital signs: Vital Signs Temperature 37.0 C 10/10/24 01:39 Pulse 112 H 10/10/24 01:39 Respiratory Rate 26 H 10/10/24 01:39 Blood Pressure 139/112 H 10/10/24 01:39 Pulse Oximetry 98 10/10/24 01:39 Temperature 37.0 C 10/10/24 01:39 Temperature Source Oral 10/10/24 01:39 Pulse 85 10/10/24 02:45 Pulse 72 10/10/24 02:50 Respiratory Rate 19 10/10/24 02:45 Respiratory Effort Short of Breath 10/10/24 01:48 Blood Pressure 145/99 H 10/10/24 02:45 Blood Pressure Mean 112 10/10/24 02:45 Blood Pressure Position Supine 10/10/24 01:39 Pulse Oximetry 96 10/10/24 02:50 Oxygen Delivery Method Room Air 10/10/24 01:39 Oxygen Flow Rate 0 10/10/24 01:39 Pain Level 3 10/10/24 01:49 Lab/Test Results Lab/Test Results: Laboratory Tests Range/Units 10/10/24 10/10/24 01:55 02:28 WBC (4.4-10.8) 10^3/uL 12.70 H RBC (4.36-5.78) 10^6/uL 5.49 Hgb (13.5-17.5) g/dL 16.8 Hct (40.0-50.0) % 49.8 MCV (80-95) fL 91 MCH (27.0-33.0) pg 30.6 MCHC (32.0-36.0) % 33.7 RDW (11.8-14.1) % 12.6 Plt Count (130-400) 10^3/uL 474 H MPV (8.0-11.0) fL 8.8 Immature Gran % % 0.2 Neutrophils % % 58.5 Lymphocytes % % 31.3 Monocytes % % 8.4 Eosinophils % % 1.0 Basophils % % 0.6 Nucleated RBC % (0.0-0.3) % 0.0 Absolute Neutrophils (1.2-6.7) 10^3/uL 7.43 H Absolute Lymphocytes (1.2-3.4) 10^3/uL 3.98 H Absolute Monocytes (0.1-0.8) 10^3/uL 1.07 H Absolute Eosinophils (0.0-0.7) 10^3/uL 0.13 Absolute Basophils (0.0-0.2) 10^3/uL 0.08 D-Dimer (<500) ng/mlFEU 282 VBG Lactate (0.6-1.4) mmol/L 1.8 H Sodium (136-145) mmol/L 142 Potassium (3.5-5.1) mmol/L 3.8 Chloride (98-107) mmol/L 103 Carbon Dioxide (21.0-32.0) mmol/L 28.6 Anion Gap (3-11) mmol/L 10.4 BUN (7-18) mg/dL 20 H Creatinine (0.70-1.30) mg/dL 1.3 Est GFR (CKD-EPI 2020) (mL/min/1.73m2) 67.34 Glucose (74-106) mg/dL 157 H Total Bilirubin (0.2-1.0) mg/dL 0.55 AST (15-37) U/L 11 L ALT (16-63) U/L 23 Alkaline Phosphatase (46-116) U/L 127 H Total Protein (6.4-8.2) g/dL 8.1 Albumin (3.4-5.0) g/dL 3.8 Lipase (<78) U/L 22 TSH (0.36-3.74) uIU/mL 0.09 L Urine Color (Yellow) Yellow Urine Clarity (Clear) Clear Urine pH (5-8) 5.[address] [place] (1.005-1.025) >= 1.030 H Urine Protein (Neg-Trace) mg/dL 100 H Urine Ketones (Negative) mg/dL Trace H Urine Blood (Negative) Negative Urine Nitrite (Negative) Negative Urine Bilirubin (Negative) Small H Urine Urobilinogen (Up to 0.2) mg/dL 0.2 Ur Leukocyte Esterase (Negative) Negative Urine RBC (0-2) HPF 0-2 Urine WBC (0-5) HPF 3-5 Ur Epithelial Cells (Negative) HPF Moderate Urine Crystals (Negative) HPF Negative Urine Bacteria (Negative) HPF Few Urine Casts (Negative) LPF 0-2 Hyaline Urine Mucus (Negative) Trace Ur Culture Indicated? No Urine Glucose (Negative) mg/dL 100 H Medical Decision Making 49yo M with reported hx of renal cancer with partial nephrectomy two months ago, presenting for diffuse crampy abdominal pain and nausea with dry heaving. Symptoms have been present intermittently frequently over the past two months since his surgery, for the past two days symptoms have been more constant and somewhat worse in severity. No alleviating or aggravating factors. No vomiting, last BM yesterday, soft/formed/brown. Tachycardiac on arrival to 110's, vital signs otherwise reassuring. Not overtly septic. Non-tender abdomen. Has tried zofran with no improvement; will treat symptoms here with tylenol/toradol/reglan. -EKG from triage SR in 90's, no ST segment or T wave abnormalities to suggest occlusive MS, does have RBBB. Does have somewhat prolonged QTc at 488 however this is complicated by presence of IVD; [facility] corrected QTc calculator (taking into account HR of 97 and QRS of 163) provides reassuring values with QTc of 445ms ([place]), 408 ([place]), 406 ([place]), 400 ([place]), all within acceptable range. -Most recent prior EKG here from 2017 without clear RBBB however did have slight QRS widening (116) and right axis deviation at that time. -Patient with no chest pain, shortness of breath (documented in triage note but patient denies to me when asked directly), lightheadedness, syncope, palpitations, fatigue, diaphoresis, pain other than crampy abdominal pain. Not suggestive of acute coronary syndrome, would not pursue further at this time i.e. with troponins/echo. -Labs reviewed as below, CBC with mild leukocytosis 12.7 (non-specific) and no anemia, CMP with no actionable abnormalities, Mg normal, lipase normal (unlikely pancreatitis), lactate reassuring at 1.8, dimer normal (would not further pursue pulmonary embolism with CT imaging), TSH low with normal T4 similar to most recent prior labs, UA with proteinuria and not infected. -CTA abd/pelvis independently reviewed; no bowel obstruction or free fluid, radiology read below with no mesenteric ischemia, does have fluid collection in left renal parchenyma (seroma vs hematoma vs abscess). He has no fevers, chills, flank pain, dsyuria, or hematuria and urine is not infected; unlikely abscess, favor post-operative changes. On reassessment he reports his pain and nausea have both resolved, requests discharge home. Repeat HR improved. Unclear etiology of symptoms, has been seeing his PCP for this without clear diagnosis. With reassuring labs and CT scan, advised close PCP followup for multiple conditions including likely subclinical hyperthyroidism (unable to check T3 here/is a sendout, pt not in thyroid storm), proteinuria, new EKG findings, and chronic abdominal pain. Pt states he is usually able to get in to see his PCP within a day or two. Discharged home on short course of oral reglan; the importance of timely PCP followup was stressed. Discharged home; discharge instructions and return precautions were reviewed with patient who verbalized understanding. All questions were answered and he is in full agreement with the plan. Medical Records Medical records reviewed: Yes I reviewed the patient's medical records. Imaging Data Radiologic Study: Imaging: CT Scan Radiologist's impression: IMPRESSION: 1. 2.7 cm loculated fluid collection at the superior margin of the surgical site of the left renal parenchyma with mild local stranding. This could be postoperative seroma, resolving hematoma, or abscess. 2. Isodense nodular thickening of the right adrenal gland is indeterminate Lab Data Lab results reviewed: Yes I reviewed the patient's lab results. Labs: Laboratory Tests Range/Units 10/10/24 10/10/24 01:55 02:28 WBC (4.4-10.8) 10^3/uL 12.70 H RBC (4.36-5.78) 10^6/uL 5.49 Hgb (13.5-17.5) g/dL 16.8 Hct (40.0-50.0) % 49.8 MCV (80-95) fL 91 MCH (27.0-33.0) pg 30.6 MCHC (32.0-36.0) % 33.7 RDW (11.8-14.1) % 12.6 Plt Count (130-400) 10^3/uL 474 H MPV (8.0-11.0) fL 8.8 Immature Gran % % 0.2 Neutrophils % % 58.5 Lymphocytes % % 31.3 Monocytes % % 8.4 Eosinophils % % 1.0 Basophils % % 0.6 Nucleated RBC % (0.0-0.3) % 0.0 Absolute Neutrophils (1.2-6.7) 10^3/uL 7.43 H Absolute Lymphocytes (1.2-3.4) 10^3/uL 3.98 H Absolute Monocytes (0.1-0.8) 10^3/uL 1.07 H Absolute Eosinophils (0.0-0.7) 10^3/uL 0.13 Absolute Basophils (0.0-0.2) 10^3/uL 0.08 D-Dimer (<500) ng/mlFEU 282 VBG Lactate (0.6-1.4) mmol/L 1.8 H Sodium (136-145) mmol/L 142 Potassium (3.5-5.1) mmol/L 3.8 Chloride (98-107) mmol/L 103 Carbon Dioxide (21.0-32.0) mmol/L 28.6 Anion Gap (3-11) mmol/L 10.4 BUN (7-18) mg/dL 20 H Creatinine (0.70-1.30) mg/dL 1.3 Est GFR (CKD-EPI 2020) (mL/min/1.73m2) 67.34 Glucose (74-106) mg/dL 157 H Calcium (8.5-10.1) mg/dL 9.5 Magnesium (1.8-2.4) mg/dL 1.9 Total Bilirubin (0.2-1.0) mg/dL 0.55 AST (15-37) U/L 11 L ALT (16-63) U/L 23 Alkaline Phosphatase (46-116) U/L 127 H Total Protein (6.4-8.2) g/dL 8.1 Albumin (3.4-5.0) g/dL 3.8 Lipase (<78) U/L 22 TSH (0.36-3.74) uIU/mL 0.09 L Free T4 (0.76-1.46) ng/dL 1.26 Urine Color (Yellow) Yellow Urine Clarity (Clear) Clear Urine pH (5-8) 5.[address] [place] (1.005-1.025) >= 1.030 H Urine Protein (Neg-Trace) mg/dL 100 H Urine Ketones (Negative) mg/dL Trace H Urine Blood (Negative) Negative Urine Nitrite (Negative) Negative Urine Bilirubin (Negative) Small H Urine Urobilinogen (Up to 0.2) mg/dL 0.2 Ur Leukocyte Esterase (Negative) Negative Urine RBC (0-2) HPF 0-2 Urine WBC (0-5) HPF 3-5 Ur Epithelial Cells (Negative) HPF Moderate Urine Crystals (Negative) HPF Negative Urine Bacteria (Negative) HPF Few Urine Casts (Negative) LPF 0-2 Hyaline Urine Mucus (Negative) Trace Ur Culture Indicated? No Urine Glucose (Negative) mg/dL 100 H Quality:SDOH Health Related Social Needs: No Data to Display PFSH All Active Problems (Updated 10/10/24 @ 04:05 by Shanda Marquez MD) Abdominal pain (Acute) Nausea (Acute) Hyperlipidemia (Acute) Disorder of adrenal gland (Acute) Type 2 diabetes mellitus without complication (Acute) Elevated LFTs (Acute) Elevated serum creatinine (Acute) Smoker unmotivated to quit (Acute) Blood glucose elevated (Acute) Hypertension (Acute) Effusion of left knee (Acute) Aspiration: 07/08/2019; 06/21/2018 Medical History COPD (chronic obstructive pulmonary disease) Adrenal nodule Tobacco dependence GERD (gastroesophageal reflux disease) Obesity PATRICK (obstructive sleep apnea) Joint effusion, knee Hernia, umbilical Surgical History History of umbilical hernia (~01/2024) Social History Smoking/Tobacco Use Status: Current every day Tobacco Type: cigarettes Smoking risk assessment performed?: Yes Alcohol Intake: current Alcohol Intake frequency: holidays/special occasions only Drug use: Never Substance use type: does not use Housing: house Current gender identity: male Do you feel safe at home: Yes Do you feel safe in your relationship?: Yes
[2024-10-10 03:18] LABS: Calcium 9.5 mg/dL (8.5-10.1)
--- NOTE | 2024-10-10 03:19 | DI.CT_ITS ---
Exam(s) CT ABDOMEN PELVIS CTA EXAM: CT ABDOMEN PELVIS CTA CLINICAL HISTORY: diffuse abdominal pain, abd nontender. TECHNIQUE: Imaging Protocol: Axial CT angiography was performed with multi-slice acquisition and m ulti-planar and/or 3D reconstructions. CONTRAST MATERIAL: Intravenous: Omnipaque 350 Contrast volume:100mL Oral: No COMPARISON: CT CHEST FOR PULMONARY EMBOLUS from 12/26/2016 FINDINGS: ABDOMEN AND PELVIS: Abdomen: Celiac axis/mesenteric arteries: No evidence of occlusion or significant stenosis. Renal Arteries: No evidence of occlusion or significant stenosis. Aorta: No evidence of occlusion or significant stenosis. No aneurysm or dissection. Pelvis: Iliac Arteries: No evidence of occlusion or significant stenosis. Mild atherosclerotic calcification is seen in the right common iliac artery and the internal iliac arteries bilaterally. There is also mild calcification at the origin of the left external iliac artery. Common Femoral Arteries: No evidence of occlusion or significant stenosis. ABDOMEN: Lung bases: Unremarkable. Liver: Normal density. No measurable mass. Portal, Superior Mesenteric, and Splenic Veins: Unremarkable. Gallbladder and Biliary Tract: No radiodense calculus or dilation. Pancreas: Normal density, no abnormal calcifications or inflammatory process. Spleen: Normal. Adrenals: There is unchanged nodularity of the right adrenal gland likely reflecting an adenoma. Kidneys: Normal size, contour and axis. No radiodense stones or obstructive uropathy. There are posts urgical changes seen at the superior aspect of the left kidney consistent with the patient's history of partial nephrectomy. There is a 2.7 cm round fluid collection at the superior aspect of the left kidney. Differential considerations include renal cyst, resolving hematoma or seroma. Abscess canno t be entirely excluded. Bowel: There are scattered diverticula in the colon but no evidence of acute diverticulitis. No evid ence of bowel wall thickening or obstruction. The stomach is incompletely distended limiting evaluat ion. Appendix is unremarkable. Peritoneal Cavity: No ascites, collection or mesenteric inflammatory response. No free air. Lymph Nodes: Within normal limits. Bones: Within normal limits for the patient's age. Soft Tissues: There is a small fat containing right inguinal hernia. PELVIS: Bladder: Symmetric distention, no gross wall thickening. Reproductive Organs: Unremarkable as visualized. Lymph Nodes: Within normal limits. Bones: Within normal limits. IMPRESSION: 1. Unremarkable CT angiography of the abdomen and pelvis. No evidence of aneurysm or dissection. 2. Partial left nephrectomy. There is a 2.7 cm round fluid collection at the superior aspect of the left kidney. Differential considerations include renal cyst, seroma or resolving hematoma. Abscess cannot be excluded. RADIATION DOSE DELIVERED: 800.87mGy.cm Total DLP DATA REPOSITORY: All CT scans at this facility are submitted to the National Radiology Data Registry (NRDR) Dose Index Registry (DIR) with the [employer] (A[employer]). RADIATION OPTIMIZATION: All CT scans at this facility use at least one of these dose optimization te chniques: automated exposure control; mA and/or kV adjustment per patient size (includes targeted exa ms where dose is matched to clinical indication); or iterative reconstruction.
[2024-10-10] MEDS: Normal Saline - Diluent 50 ML VIAL IJ (03:21)
[2024-10-10 03:22] LABS: Magnesium 1.9 mg/dL (1.8-2.4)
[2024-10-10] MEDS: Omnipaque 350 MG/ML 100 ML BTL IJ (03:22)
--- NOTE | 2024-10-10 03:54 | DI.VRAD_ITS ---
PROCEDURE INFORMATION: Exam: CTA Abdomen and Pelvis With Contrast Exam date and time: 10/10/2024 3:07 AM Age: 49 years old Clinical indication: Other: Diffuse abdominal pain, abd nontender; Prior surgery; Surgery date: 6+ months; Surgery type: Partial nephrectomy TECHNIQUE: Imaging protocol: Computed tomographic angiography of the abdomen and pelvis with contrast. Exam focused on the arteries. 3D rendering (Not supervised by radiologist): MIP and/or 3D reconstructed images were created by the technologist. Contrast material: OMNIPAQUE 350; Contrast volume: 100 ml; Contrast route: INTRAVENOUS (IV); COMPARISON: CR XR CHEST 2V PA LATERAL 11/16/2018 9:13 PM FINDINGS: Aorta: No aortic aneurysm. No aortic dissection. Celiac trunk and mesenteric arteries: No occlusion or significant stenosis. Renal arteries: No occlusion or significant stenosis. Right iliac arteries: No occlusion or significant stenosis. Left iliac arteries: No occlusion or significant stenosis. Liver: No mass. Gallbladder and biliary ducts: Unremarkable. No calcified stones. No ductal dilation. Pancreas: Unremarkable. No mass. No ductal dilation. Spleen: Unremarkable. No splenomegaly. Adrenal glands: Isodense nodular thickening of the right adrenal gland is indeterminate. Kidneys and ureters: 2.7 cm loculated fluid collection at the superior margin of the surgical site of the left renal parenchyma with mild local stranding. This could be postoperative seroma, resolving hematoma, or abscess. Stomach and bowel: Mild colonic diverticulosis. No diverticulitis Appendix: No evidence of appendicitis. Intraperitoneal space: Unremarkable. No free air. No significant fluid collection. Lymph nodes: Unremarkable. No enlarged lymph nodes. Urinary bladder: Unremarkable. No mass. Reproductive: Unremarkable as visualized. Bones/joints: No acute fracture. Soft tissues: See Kidneys and ureters finding. IMPRESSION: 1. 2.7 cm loculated fluid collection at the superior margin of the surgical site of the left renal parenchyma with mild local stranding. This could be postoperative seroma, resolving hematoma, or abscess. 2. Isodense nodular thickening of the right adrenal gland is indeterminate. Dictated and Authenticated by: Jay Gil MD. Ordering:JUSTINO Land MD
[2024-10-10] MEDS: Metoclopramide 10 MG TAB PO (04:20)
== END 2024-10-10 04:22 | disposition home or self-care (01) ==
PROVIDERS: Emergency Provider Student in an Organized Health Care Education/Training Program; PCP Physician Assistant
DX: R10.9 Unspecified abdominal pain (principal); J44.9 Chronic obstructive pulmonary disease, unspecified; E11.9 Type 2 diabetes mellitus without complications; I45.19 Other right bundle-branch block; F17.210 Nicotine dependence, cigarettes, uncomplicated; Z85.528 Personal history of other malignant neoplasm of kidney; Z90.5 Acquired absence of kidney; Z79.84 Long term (current) use of oral hypoglycemic drugs
CPT/HCPCS: 36415; 80053; 83690; 93005; 96365; 96375; 99285; 74174; 81003; 81015; 83605; 83735; 84439; 84443; 85025; 85379; 93010; J0131; J1885; J2765; J3490

== ENCOUNTER 2024-10-11 15:44 | Emergency (ER) | payer BC, SELFPAY ==
[2024-10-11 15:50] VITALS: BP 156/114; PULSE 114; RESP 16; TEMP 36.7; O2SAT 98
[2024-10-11 15:54] VITALS: BP 156/114; PULSE 114; RESP 16; TEMP 36.7; O2SAT 98
--- NOTE | 2024-10-11 16:48 | ED.GENADUL_ITS ---
Discharge Plan Disposition Patient Disposition: Home Discharge Details Clinical Impression: Nausea, Abdominal pain, Dehydration, Hypertension Primary Care Provider: Taj Copeland ED Provider: Tamika Saez Home Meds and New Rx's Prescriptions: New prochlorperazine 25 mg suppository 25 mg SD BID PRNQty: 12 0RF Continued hydrochlorothiazide 25 mg tablet 25 mg PO DAILY losartan 100 mg tablet 100 mg PO DAILY amlodipine 5 mg tablet 5 mg PO DAILY atorvastatin 40 mg tablet 40 mg PO QHS Jardiance 10 mg tablet 10 mg PO DAILY omeprazole 20 mg capsule,delayed release(DR/EC) 20 mg PO DAILY Discontinued metoclopramide HCl [Reglan] 5 mg tablet 5 mg PO BID Qty: 7 0RF Rx Instructions: administer 30 minutes before meals Discharge Instructions Additional Instructions: Please call [facility] urology at [phone]. First thing in the morning to schedule follow-up appointment. The on-call physician Dr. Mascorro is sending a note to them, they will arrange for you to have close follow-up to look into the cause of your nausea, weight loss, and abdominal pain. Please call your primary care provider to discuss your elevated blood pressures. You may need some adjustments to your blood pressure medications. Your labs today were reassuring. Your magnesium was slightly low, I recommend taking [id number] magnesium supplement. An option such as calm, a dissolvable form of magnesium may be well-tolerated. Your labs are consistent with dehydration. Stay well-hydrated, drinking plenty of fluids throughout the day. I encourage you to use gentle foods such as soup, which will supply nutrients as well as fluid. Today you were given prochlorperazine IV. This seems to have worked for you. I have sent a prescription for suppositories of prochlorperazine. You may take this with 25 mg of Benadryl to help with nausea and side effects of the medication. Return to emergency care if you develop new severe abdominal pain, uncontrollable vomiting, episodes of passing out, high fevers associated with abdominal pain, decreased urine output, or if you are very worried and need to be rechecked again immediately Referrals: Taj Copeland [Primary Care Provider] - HPI General Date/Time Provider Initiated Documentation: 10/11/24 15:45 . HPI Narrative: Guero is a 49year old male who presents to the emergency department today for evaluation of persistent abdominal pain with nausea/decreased appetite x >1 month. He reports that he had surgery on August 17, developed abdominal pain that radiates upwards accompanied by nausea/decreased appetite 3 days after. He was briefly admitted to [facility] for concern of postop complications, says that his symptoms did not change and they did not find anything wrong with him during that time. He has been managing his symptoms at home with oxycodone and antinausea medications including Reglan and Zofran with no improvement of sym ptoms. Pain is aggravated with movement, he says he is comfortable if he lays still. He was seen in the emergency department yesterday, had labs and CT scan performed, no acute abnormalities or obvious cause of symptoms noted. Today he was seen by his PCP Taj Copeland and was dry heaving in his office, so he became concerned and was referred to the emergency department for further evaluation/management. He denies associated fever/chills, congestion, sore throat, new cough, chest pain, difficulty breathing, change in bladder function. He does report that his urine has been dark since surgery and he has been constipated, having only 1 hard stool a day rather than 3 softer once daily as prior to surgery. He does report weight loss during this time. Since surgery. He had a resection of his left kidney and removal of adrenal gland for treatment of cancer. Past medical history is significant for DM (not currently on medications, controlled with weight loss), HTN, HLD. Physical exam reassuring. Patient is alert and oriented, no acute distress. Slightly tacky mucous membranes. Abdomen is soft, nondistended, nontender to palpation with normoactive bowel sounds. Easy work of breathing, lung sounds clear bilaterally. Normal heart sounds, mild tachycardia noted. D/dx includes but is not limited to: Dehydration, electrolyte imbalance, gastroparesis, gastric outlet syndrome, other functional motility disorder, postop abscess. As symptoms are unchanged and he had CT imaging performed yesterday with no acute abnormalities other than a small fluid collection, repeat imaging not indicated at this time. I independently interpreted the following tests: CBC reassuring, mild leukocytosis with white cell count 10.96, no change from yesterday. CMP, lipase, magnesium (1.7, slightly low) all reassuring. While in the emergency department, Guero received prochlorperazine, Benadryl, and morphine IR for pain control. He reported good improvement in nausea, was able to take sips of ritchie refugio after receiving antiemetics. Tachycardia improved after receiving p.o. fluids. Guero's blood pressures were elevated today. He reports that he has not taken his blood pressure medications in a couple of days. His home meds were ordered and given in the emergency department. I did review case with Dr. Mascorro, urology at [facility]. Reviewed patient's presentation, labs, and CT findings. He would like patient to have urgent follow-up in urology clinic, he will send a note to have this arranged. Patient to call tomorrow morning. Overall workup today reassuring. Patient was sent home with prescription for prochlorperazine and a limited number of morphine IR tablets for pain control, as he has run out of his at home oxycodone. Reviewed discharge instructions with patient, including symptomatic management, [facility] follow-up, and red flags indicating need for return to emergency care Related Data Home Medications ?Medication ?Instructions ?Recorded ?Confirmed hydrochlorothiazide 25 mg tablet 25 mg PO DAILY 08/08/20 10/11/24 losartan 100 mg tablet 100 mg PO DAILY 08/08/20 10/11/24 amlodipine 5 mg tablet 5 mg PO DAILY 11/05/23 10/11/24 atorvastatin 40 mg tablet 40 mg PO QHS 11/05/23 10/11/24 empagliflozin 10 mg tablet 10 mg PO DAILY 11/05/23 10/11/24 (Jardiance) omeprazole 20 mg capsule,delayed 20 mg PO DAILY 11/05/23 10/11/24 release prochlorperazine 25 mg rectal 25 mg SD BID PRN #12 ea 10/11/24 suppository Previous Rx's ?Medication ?Instructions ?Recorded prochlorperazine 25 mg rectal 25 mg SD BID PRN #12 ea 10/11/24 suppository Allergies Allergy/AdvReac Type Severity Reaction Status Date / Time Penicillins Allergy Unknown Other (See Verified 10/11/24 15:52 Comment) General Stated Complaint: Abd Prob REGULO: 3 Review of Systems Narrative: See HPI Exam Const General: cooperative, no acute distress, well developed and well groomed Nutritional Appearance: average body habitus Orientation: alert and oriented x3 HENMT Head: normal to inspection Ears: hearing grossly normal bilaterally General nose exam: external nose normal Face and sinus: normal facial exam and dry mucous membranes (Tacky mucous membranes) Mouth: no muffled voice Resp Effort & Inspection: normal respiratory effort and able to speak in complete sentences Auscultation: clear to auscultation bilaterally Cardio Rate: tachycardic Rhythm: regular rhythm GI Inspection: normal to inspection Palpation: soft, not firm, no guarding, not rigid and nontender Auscultation: normal bowel sounds Course Vital Signs Vital signs: Vital Signs Temperature 36.7 C 10/11/24 15:50 Pulse 114 H 10/11/24 15:50 Respiratory Rate 16 10/11/24 15:50 Blood Pressure 156/114 H 10/11/24 15:50 Pulse Oximetry 98 10/11/24 15:50 Temperature 36.7 C 10/11/24 15:54 Temperature Source Oral 10/11/24 15:54 Pulse 114 H 10/11/24 15:54 Respiratory Rate 16 10/11/24 15:54 Respiratory Effort Normal, Non-Labored 10/11/24 15:52 Blood Pressure 156/114 H 10/11/24 15:54 Pulse Oximetry 98 10/11/24 15:54 Oxygen Delivery Method Room Air 10/11/24 15:54 Oxygen Flow Rate 0 10/11/24 15:54 Pain Level 4 10/11/24 15:54 Medical Decision Making Quality:SDOH Health Related Social Needs: No Data to Display PFSH All Active Problems (Updated 10/11/24 @ 19:06 by Tamika Thurman) Dehydration (Acute) Abdominal pain (Acute) Nausea (Acute) Hyperlipidemia (Acute) Disorder of adrenal gland (Acute) Type 2 diabetes mellitus without complication (Acute) Elevated LFTs (Acute) Elevated serum creatinine (Acute) Smoker unmotivated to quit (Acute) Blood glucose elevated (Acute) Hypertension (Acute) Effusion of left knee (Acute) Aspiration: 07/08/2019; 06/21/2018 Medical History COPD (chronic obstructive pulmonary disease) Adrenal nodule Tobacco dependence GERD (gastroesophageal reflux disease) Obesity PATRICK (obstructive sleep apnea) Joint effusion, knee Hernia, umbilical Surgical History History of umbilical hernia (~01/2024) Social History Smoking/Tobacco Use Status: Current every day Tobacco Type: cigarettes Smoking risk assessment performed?: Yes Alcohol Intake: current Alcohol Intake frequency: holidays/special occasions only Drug use: Never Substance use type: does not use Housing: house Current gender identity: male Do you feel safe at home: Yes Do you feel safe in your relationship?: Yes
[2024-10-11 17:03] LABS: Abs Immature Grans 0.03 10^3/uL (0.0-0.06); Absolute Basophil Count 0.07 10^3/uL (0.0-0.2); Absolute Eosinophil Count 0.09 10^3/uL (0.0-0.7); Absolute Lymphocyte Count 3.12 10^3/uL (1.2-3.4); Absolute Monocyte Count 0.87 10^3/uL (0.1-0.8); Absolute Neutrophil Count 6.78 10^3/uL (1.2-6.7); Basophils % 0.6 %; Eosinophils % 0.8 %; HCT 48.7 % (40.0-50.0); HGB 16.6 g/dL (13.5-17.5); Immature Grans % 0.3 %; Lymphocytes % 28.5 %; MCH 30.9 pg (27.0-33.0); MCHC 34.1 % (32.0-36.0); MCV 91 fL (80-95); Monocytes % 7.9 %; Neutrophils % 61.9 %; Platelet Count 473 10^3/uL (130-400); RBC 5.37 10^6/uL (4.36-5.78); RDW 12.4 % (11.8-14.1); RDW-SD 40.8 fL; WBC 10.96 10^3/uL (4.4-10.8)
[2024-10-11] MEDS: Prochlorperazine 10 MG/2 ML VIAL 5 MG IVP (17:07)
[2024-10-11] MEDS: diphenhydrAMINE 50 MG/ML VIAL 25 MG IVP (17:08)
[2024-10-11 17:22] LABS: ALT 22 U/L (16-63); AST 14 U/L (15-37); Albumin 4.1 g/dL (3.4-5.0); Alkaline Phosphatase 124 U/L (46-116); BUN 20 mg/dL (7-18); Bilirubin, Total 0.51 mg/dL (0.2-1.0); CREATININE 1.2 mg/dL (0.70-1.30); Calcium 9.7 mg/dL (8.5-10.1); Chloride 103 mmol/L (98-107); Estimated GFR 74.13 (mL/min/1.73m2); Glucose 130 mg/dL (74-106); Lipase 18 U/L (<78); Magnesium 1.7 mg/dL (1.8-2.4); Potassium 3.8 mmol/L (3.5-5.1); Sodium 141 mmol/L (136-145); Total Protein 8.2 g/dL (6.4-8.2)
[2024-10-11 18:52] LABS: Bilirubin Small (Negative); Blood Negative (Negative); Clarity Clear (Clear); Glucose Negative (Negative); Ketones 15 mg/dL (Negative); Leukocyte Esterase Negative (Negative); Nitrite Negative (Negative); Specific Gravity 1.025 (1.005-1.025); Urobilinogen 0.2 mg/dL (Up to 0.2); pH 5.5 (5-8)
[2024-10-11 18:57] VITALS: BP 204/126; PULSE 95; RESP 18; O2SAT 97
[2024-10-11 19:00] LABS: Bacteria Rare HPF (Negative); C & S Indicated? No; Casts Negative LPF (Negative); Crystals Few Amorphous HPF (Negative); Epithelial Cells Rare HPF (Negative); Mucus Heavy (Negative); RBC 0-2 HPF (0-2); WBC Negative HPF (0-5)
[2024-10-11] MEDS: MORPHine IR 15 MG TAB PO (19:20)
[2024-10-11] MEDS: hydroCHLOROthiazide 25 MG TAB PO (19:20)
[2024-10-11] MEDS: Losartan 50 MG TAB 100 MG PO (19:20)
[2024-10-11] MEDS: amLODIPine 5 MG TAB PO (19:20)
[2024-10-11 19:57] VITALS: BP 215/125; PULSE 90; RESP 14; O2SAT 100
[2024-10-11 19:58] VITALS: BP 202/123
[2024-10-11] MEDS: MORPHine IR 15 MG TAB, 4 TABS/BTL PO (20:13)
[2024-10-11 20:15] VITALS: BP 202/123; PULSE 90; RESP 16; TEMP 36.8; O2SAT 100
== END 2024-10-11 20:15 | disposition home or self-care (01) ==
PROVIDERS: Emergency Provider Nurse Practitioner Family; PCP Physician Assistant
DX: R10.30 Lower abdominal pain, unspecified (principal); R11.10 Vomiting, unspecified; J44.9 Chronic obstructive pulmonary disease, unspecified; E78.5 Hyperlipidemia, unspecified; E11.9 Type 2 diabetes mellitus without complications; F17.210 Nicotine dependence, cigarettes, uncomplicated; Z90.5 Acquired absence of kidney
CPT/HCPCS: 80053; 83690; 96374; 96375; 99285; 81003; 81015; 83735; 85025; 99284; J0780; J1200

== ENCOUNTER 2024-10-13 12:40 | Outpatient (CLI) | payer BC, SELFPAY ==
[2024-10-13 13:22] LABS: Troponin I 16 ng/L (<or=76)
== END 2024-10-13 12:41 | disposition home or self-care (01) ==
LOC: LBO 12:41
PROVIDERS: PCP Physician Assistant; Visit Provider Physician Assistant
DX: R07.9 Chest pain, unspecified (principal)
CPT/HCPCS: 36415; 84484

== ENCOUNTER 2024-10-22 08:02 | Day surgery (SDC) | payer BC, SELFPAY ==
--- NOTE | 2024-10-21 21:11 | W.PM.DSUDISC ---
Date of service: 10/22/24 Discharge Plan Disposition Patient Disposition: Home Condition: Good Discharge Details Reason For Visit: egd Attending Provider: Orly Pulido Primary Care Provider: Taj Copeland Home Meds and New Rx's Prescriptions: No Action morphine 15 mg tablet extended release 15 mg PO Q12H pantoprazole [Protonix] 40 mg tablet,delayed release (DR/EC) 40 mg PO BID Qty: 60 12RF hydrochlorothiazide 25 mg tablet 25 mg PO DAILY losartan 100 mg tablet 100 mg PO DAILY amlodipine 5 mg tablet 5 mg PO DAILY atorvastatin 40 mg tablet 40 mg PO QHS Jardiance 10 mg tablet 10 mg PO DAILY acetaminophen 325 mg capsule 325 mg PO ONCE clotrimazole 1 % cream 1 applic topical BID metoclopramide HCl 5 mg tablet 5 mg PO DAILY Rx Instructions: administer 30 minutes before meals prochlorperazine 25 mg suppository 25 mg ID BID PRNQty: 12 0RF Discharge Instructions Additional Instructions: Post EGD Instruction ?You had anesthesia for your EGD/stomach scope today.? For your safety, please do the following for the next twenty-four (24) hours: Do Not operate a motor vehicle (car, truck, motorcycle, etc.) Do Not drink alcoholic beverages or use any recreational drugs for the first 24 hours or while taking pain medications. The medications in your body may have a reaction that can be dangerous. Do Not make any important decisions or sign any important papers You have just had a gastroscopy (EGD) or upper GI tract examination. It is important for your smooth recovery that you carefully follow the recommendations below. Do not hesitate to call if any questions should arise about your anesthesia, condition, or care. -Symptoms you may experience during the next 24 hours: ?1. Mild abdominal pain or excessive gas or a bloated feeling which improves with rest, liquids, eating? slightly, and walking as tolerated. 2. Drowsiness and/or forgetfulness because of the medications you were given. 3. A sore throat which you can treat with throat lozenges or by gargling with salt water 4-5 times a day. 4. Redness at the site of your IV which you can treat with warm compresses. SPECIAL INSTRUCTIONS: 1. You may resume your previous diet in one hour. We recommend a light meal to start, then progress as tolerated. 2. Restart regular medications in one hour. 3. No aspirin or non-steroidal containing medication for 24 hrs. 4. No lifting over 20 pounds or strenuous activity for the first 24 hours after your procedure. After 24 hours there are no restrictions on your activity, but you may feel fatigued for a few days. -Findings: No abnormal findings -Medications: No changes -Continue to follow lifestyle modifications: No alcohol, tobacco products, Aspirin or NSAID's (ibuprofen, Motrin, Naprosyn, aleve, etc).? Try to limit/avoid:? soda pop/any carbonated beverages, caffeine (including tea & chocolate), and acidic foods, (tomatoes, citrus, onions, peppermints) spicy or fried/fatty foods. Do not lie down for 30 minutes after eating, and do not eat 2 hours prior to bedtime. Avoid wearing tight fitting clothing/ belts. Follow up: Follow-up in my office in 2 weeks to discuss biopsy results. 11/04 9:30 am Call the office at [phone] (Office) or [phone] (Hospital), or go to the ER right away if you notice any of the followin. Vomiting blood and /or ?coffee ground? material. ?2. Worsening of abdominal pain or cramping. ?3. Trouble with breathing, cough, and/or fever (temperature above 101.5 F). 4. Increasing pain with swallowing. ?5. Chest pain. 6. Any new symptoms. 7. Worsening of the redness at the IV site Activity:: see above Diet:: see above Discharge Orders Discharge Orders: Discharge Order (Routine); Ordered 10/22/24 Ordered By: Orly Pulido DS: Diagnosis Discharge Diagnosis (1) Hypertension: Status: Acute (2) Hyperlipidemia: Status: Acute (3) Blood glucose elevated: Status: Acute (4) Type 2 diabetes mellitus without complication: Status: Acute (5) Elevated LFTs: Status: Acute (6) Effusion of left knee: Status: Acute (7) Difficult airway: Status: Acute (8) Smoker unmotivated to quit: Status: Acute (9) COPD (chronic obstructive pulmonary disease): (10) PATRICK (obstructive sleep apnea): (11) GERD (gastroesophageal reflux disease): Asessment and Plan: Informed consent is obtained for the procedural (explained in simple layman's terms that the pt. and/or family could understand) explaining risks vs benefits and alternatives to the procedure and consequences if we do not do the procedure and need/rational for the procedure. Risks include but are not limited to: bleeding, infection, perforation of esophagus, stomach, colon, small intestines, bronchus or trachea, or PTX. This would necessitate emergency surgery to repair the damage w/ possible ostomy; and other associated complications w/ the required surgery. Also complications of anesthesia including aspiration, IA/CVA/. (12) Hernia, umbilical:
--- NOTE | 2024-10-21 21:14 | ENDO_ITS ---
Date of service: 10/22/24 Time of Service: 10:16 Endoscopy Report DATE OF PROCEDURE: 10/22/24 PRE-OP DIAGNOSIS: GERD/N&V/epigastric pain POST-OP DIAGNOSIS: other (no abnormal findings ) SURGEON: Orly Pulido ANESTHESIA TYPE: General:No Airway ESTIMATED BLOOD LOSS: 2 PATHOLOGY: other COMPLICATIONS: None DISPOSITION: same day PROCEDURE DESCRIPTION: Informed consent was obtained from the pt; explaining the benefits and Risks: bleeding, infections, perforations {which could require surgery or antibiotics and prolonged hospital stay}, or ostomy, and complications of anaesthesia, duane aspiration). The patient was take to the procedure room and placed in a supine position. Monitors were applied and a time out was done. The patients name, date of , procedure type, allergies to medications and metal in their body was reviewed. A bite block was placed and the patient was sedated. Once sedated and comfortable an Olympus gastroscope (see RN notes for scope #) was advanced through the oropharynx which was grossly normal, and passed into the esophagus. The proximal and mid-esophagus were normal. The distal esophagus does not show any: dilation/strictures/varices/erosions or ulcers/bleeding noted. The scope was advanced into the stomach and through the pylorus into the proximal jejunum. A bx is taken for celiac Dx . The duodenum was noted to be normal. Biopsies were done of the duodenal bulb.. The scope was retracted back into the stomach and biopsies were taken of the antrum. There were no gastritis/gastropathy/ ulcers/masses noted. The scope was retroflexed. The cardia and fundus were noted to be normal. No hiatal hernia noted. The scope was retracted back into the esophagus and biopsies were done of the GE junction (in all 4 quadrants) and distal esophagus (2cm above the GE junction) to rule out Phan's. All specimens are retrieved and no bleeding was noted. The Z line was regular. The GE junction was at 38 cm. The scope was removed and the patient was woken up and taken back to [facility] in stable condition.
[2024-10-22] VITALS (22 sets, daily range): BP systolic 77–121; BP diastolic 42–85; PULSE 60–85; RESP 12–18; TEMP 35.7–36.6; O2SAT 92–100; BMI 29.1
[2024-10-22] MEDS: Normal Saline 500 ML 30 ML IV (08:41)
--- NOTE | 2024-10-22 09:06 | W.ANESPRE ---
General Info Date of Service Date Performed: 10/22/24 Height: 5 ft 9 in Weight: 89.5 kg Body Mass Index (BMI): 29.1 Surgical Procedure: Operation Date: 10/22/24 08:50 Proposed Procedure Side Surgeon p Gastroscopy Orly Pulido DO Meds Allergies and Home Medications Allergies Allergy/AdvReac Type Severity Reaction Status Date / Time Penicillins Allergy Unknown Other (See Verified 10/22/24 08:23 Comment) Home Medication ?Medication ?Instructions ?Recorded hydrochlorothiazide 25 mg tablet 25 mg PO DAILY 08/08/20 losartan 100 mg tablet 100 mg PO DAILY 08/08/20 amlodipine 5 mg tablet 5 mg PO DAILY 11/05/23 atorvastatin 40 mg tablet 40 mg PO QHS 11/05/23 empagliflozin 10 mg tablet 10 mg PO DAILY 11/05/23 (Jardiance) prochlorperazine 25 mg rectal 25 mg FL BID PRN #12 ea 10/11/24 suppository acetaminophen 325 mg capsule 325 mg PO ONCE 10/15/24 clotrimazole 1 % topical cream 1 applic topical BID 10/15/24 metoclopramide HCl 5 mg tablet 5 mg PO DAILY 10/15/24 morphine 15 mg tablet,extended 15 mg PO Q12H 10/18/24 release pantoprazole 40 mg tablet,delayed 40 mg PO BID #60 tabs 10/18/24 release (Protonix) Current Visit Medications: Current Medications Generic Name Dose Route Start Last Admin Trade Name Freq PRN Reason Stop Dose Admin Albuterol Sulfate 2.5 mg 10/22/24 09:34 Albuterol 2.5 Mg/3 Ml Inh Soln Vial UPD 10/22/24 09:35 PREOP ONE Sodium Chloride 500 mls @ 30 mls/hr 10/22/24 08:15 10/22/24 08:41 Saline 500ml Bag IV 11/21/24 08:14 30 mls/hr INFUSION KAYLYN Administration IV Miscellaneous Supplies 1 each 10/22/24 06:00 Iv Access IV 10/22/24 23:59 DIRECTED KAYLYN Ondansetron HCl 4 mg 10/22/24 09:01 Ondansetron 4 Mg/2 Ml Vial IVP 11/21/24 09:00 Q4H PRN PRN Nausea / Vomiting Sodium Chloride 0 ml 10/22/24 06:00 Normal Saline Flush 10 Ml Syr IV 10/22/24 23:59 PRN PRN Sodium Chloride 0 ml 10/22/24 06:00 Normal Saline 10 Ml Vial IJ 10/22/24 23:59 DIRECTED PRN Sterile Water 0 ml 10/22/24 06:00 Water,Injection,Sterile 10 Ml Vial IJ 10/22/24 23:59 DIRECTED PRN PFSH Active Problems Active Problems: Problem Status Onset Code Difficult airway Acute T88.4XXA Renal cell cancer Acute C64.9 Dehydration Acute E86.0 Abdominal pain Acute R10.9 Nausea Acute R11.0 Hyperlipidemia Acute E78.5 Disorder of adrenal gland Acute E27.9 Type 2 diabetes mellitus without complication Acute E11.9 Elevated LFTs Acute R79.89 Elevated serum creatinine Acute R79.89 Smoker unmotivated to quit Acute F17.200 Blood glucose elevated Acute R73.9 Hypertension Acute I10 Effusion of left knee Acute M25.462 Medical History Medical History Tachycardia COPD (chronic obstructive pulmonary disease) Adrenal nodule benign Tobacco dependence GERD (gastroesophageal reflux disease) Obesity PATRICK (obstructive sleep apnea) Joint effusion, knee Hernia, umbilical Medical History Comments:: See anes AF note under Difficult airway Surgical History Surgical History History of esophagogastroduodenoscopy (~10/2024) History of umbilical hernia (~01/2024) Tobacco Smoking/Tobacco Use Status: Current every day Tobacco Type: cigarettes Smoking cigarettes per day: 6 Alcohol Alcohol Intake: current Alcohol intake frequency: holidays/special occasions only Substance Use Substance use: Never Substance use type: does not use Vital Signs and Lab Results Vital Signs Most Recent Vital Signs in EMR: Most Recent Vital Signs Temp Pulse Resp BP Pulse Ox 36.6 C 82 16 121/82 99 10/22/24 08:26 10/22/24 08:26 10/22/24 08:26 10/22/24 08:26 10/22/24 08:26 Point of Care Results Point of Care Results: Finger Stick Blood Glucose 137 10/22/24 08:25 Lab Results Blood Type / Crossmatch: No Data to Display Complete Blood Count: White Blood Count 10.96 10^3/uL (4.4-10.8) H 10/11/24 16:22 Red Blood Count 5.37 10^6/uL (4.36-5.78) 10/11/24 16:22 Hemoglobin 16.6 g/dL (13.5-17.5) 10/11/24 16:22 Hematocrit 48.7 % (40.0-50.0) 10/11/24 16:22 Platelet Count 473 10^3/uL (130-400) H 10/11/24 16:22 Venous Blood Lactate 1.8 mmol/L (0.6-1.4) H 10/10/24 01:55 Complete Metabolic Panel: Sodium 141 mmol/L (136-145) 10/11/24 16:22 Potassium 3.8 mmol/L (3.5-5.1) 10/11/24 16:22 Chloride 103 mmol/L (98-107) 10/11/24 16:22 Carbon Dioxide 29.0 mmol/L (21.0-32.0) 10/11/24 16:22 BUN 20 mg/dL (7-18) H 10/11/24 16:22 Creatinine 1.2 mg/dL (0.70-1.30) 10/11/24 16:22 Est GFR (CKD-EPI 2020) 74.13 (mL/min/1.73m2) 10/11/24 16:22 Magnesium 1.7 mg/dL (1.8-2.4) L 10/11/24 16:22 Calcium 9.7 mg/dL (8.5-10.1) 10/11/24 16:22 Albumin 4.1 g/dL (3.4-5.0) 10/11/24 16:22 Glucose 130 mg/dL (74-106) H 10/11/24 16:22 Liver Function Panel: Alanine Aminotransferase (ALT/SGPT) 22 U/L (16-63) 10/11/24 16:22 Aspartate Amino Transf (AST/SGOT) 14 U/L (15-37) L 10/11/24 16:22 Coagulation Panel: D-Dimer 282 ng/mlFEU (<500) 10/10/24 01:55 Cardiac Panel: Troponin I 16 ng/L (<or=76) 10/13/24 Arterial Blood Gas: No Data to Display Venous Blood Gas: No Data to Display Pancreas Panel: Lipase 18 U/L (<78) 10/11/24 16:22 Thyroid Panel: Thyroid Stimulating Hormone (TSH) 0.09 uIU/mL (0.36-3.74) L 10/10/24 01:55 Infectious Disease: No Data to Display Blood Cultures: No Data to Display Toxicology Panel: No Data to Display Imaging and Studies Imaging and Studies Study information below may be from another EMR and interpreted by another provider. Please see original notes in EMR for more complete details. EKG Summary: 10/10/24: Exam: Resting ECG Reason for Exam: shortness of breath Patient Location: E HR:97 bpm ECG Measurements Heart Rate 97 AXIS FL 178 P 44 QRSd 163 QRS 98 QT 384 T44 QTc 488 Conclusion Sinus rhythm...normal P axis, V-rate 60- 99 Probable left atrial enlargement...P >50mS, <-0.10mV V1 RBBB and LPFB...QRSd >120mS, axis(90,210) no ST segment or T wave abnormalities to suggest occlusive VA I have reviewed and I agree with the emergency room physician's ECG interpretation. Anesthesia Assessment and Plan Anesthesia History Personal History: Other Family History: No Family History of Anesthesia Complications Exercise Tolerance Exercise Tolerance: Metabolic Equivalents>4 Pertinent Negatives Pertinent Negatives: No Major Cardiovascular Symptoms or Complaints and No Major Pulmonary Symptoms or Complaints Cardiac & Pulmonary Exam Cardiac Exam: Normal S1/S2 Heart Sounds Pulmonary Exam: Clear Bilateral Breath Sounds Implantable Cardiac Device Does patient have a Pacemaker or an ICD?: No Airway Exam Known Difficult Airway: Yes Mallampati Class: 2 Mouth Opening: Normal (> 3cm) Thyromental Distance: Greater than 3 cm Neck Range of Motion: Full ROM Neck Circumference: Thick Teeth Condition: Normal Dentition ASA Classification ASA Score: ASA 3 Emergency Case?: No NPO Status NPO Status: NPO Clears >2 hours, Solids >8 hours Anesthesia Plan Resuscitation Status: Full Code Anesthesia Technique: MAC Anesthesia Airway Planned: Natural Airway Monitors Used: Standard Monitors Preoperative Comments:: [facility] records reviewed, planned for natural airway with Glidescope/fiberoptic setup and ready in the room. Second anesthesia provider available. Patient educated and reviewed history of difficult airway. Patient and verbalize understanding and wish to proceed with elective procedure.
--- NOTE | 2024-10-22 09:46 | STOM_PTH ---
PATIENT: Guero Londono JR LOC: [facility] U#:[id number] AGE/SX: 49/M ROOM: RE10/22/[address]: Orly Pulido : 1975 BED: DIS: 10/22/2024 SPEC #: [id number] RECD: 10/22/24 13:06 STATUS: [facility] REQ #: [id number] STAN: 10/22/24 09:[address]: Orly Pulido DEPT: Surgical Specimen RECD BY: Sherri Pak ENTERED: 10/22/24 13:07 SP TYPE: STOMACH OTHR DR: Taj Copeland Tissues: 1 - BIOPSY BOWEL 2 - BIOPSY BOWEL 3 - STOMACH BIOPSY 4 - STOMACH BIOPSY 5 - ESOPHAGUS BIOPSY 6 - ESOPHAGUS BIOPSY Procedures: GROSS AND MICRO LEVEL 4 Comments: [id number]
[2024-10-22] MEDS: Breeza Beverage 473 ML BTL PO (10:31)
[2024-10-22] MEDS: Omnipaque 350 MG/ML 50 ML BTL PO (10:32)
--- NOTE | 2024-10-22 11:17 | W.ANESPOSTOP ---
Postoperative Evaluation Date, Time and Location Date Performed: 10/22/24 Time Performed: 11:06 Patient Location: Day Surgery Unit Vital Signs Most Recent Imported Vital Signs: Most Recent Vital Signs Temp Pulse Resp BP Pulse Ox 36 C L 81 16 90/66 L 94 10/22/24 10:45 10/22/24 10:45 10/22/24 10:45 10/22/24 10:45 10/22/24 10:45 Pain Score Most Recent Pain Score: Most Recent Pain Score Pain Level 0 10/22/24 10:45 Assessment Mental Status: Awake (Alert & Oriented to Patient Baseline) Airway and Respiratory Function: Patent airway with normal (patient baseline) respiratory exam Cardiovascular Function: Hemodynamically Stable Hydration Status: Adequately Hydrated Nausea & Vomiting: No Nausea or Vomiting Pain: Pt. Denies Any Pain Peripheral Nerve Block: Patient did not receive a nerve block
== END 2024-10-22 11:38 | disposition home or self-care (01) ==
LOC: SUR 08:02
PROVIDERS: PCP Physician Assistant; Visit Provider Surgery
PROC: 0DJ68ZZ Inspection of Stomach, Via Natural or Artificial Opening Endoscopic (ICD-10-PCS; CPT 43235; principal; 2024-10-22 08:45)
DX: I10 Essential (primary) hypertension (principal); E11.9 Type 2 diabetes mellitus without complications; K21.9 Gastro-esophageal reflux disease without esophagitis; R11.2 Nausea with vomiting, unspecified; R10.13 Epigastric pain; K31.9 Disease of stomach and duodenum, unspecified; K22.89 Other specified disease of esophagus
CPT/HCPCS: 43239; 88305; J1596; J2250; J2371; J2704; J3010; Q9967

== ENCOUNTER 2024-11-17 12:23 | Outpatient (CLI) | payer BC, SELFPAY ==
[2024-11-17 14:15] LABS: Lactate 1.1 mmol/L (0.6-1.4)
[2024-11-17 14:39] LABS: ALT 16 U/L (16-63); AST 9 U/L (15-37); Albumin 4.1 g/dL (3.4-5.0); Alkaline Phosphatase 108 U/L (46-116); Anion Gap 8.3 mmol/L (3-11); BUN 20 mg/dL (7-18); Bilirubin, Total 0.77 mg/dL (0.2-1.0); CO2 31.7 mmol/L (21.0-32.0); CREATININE 1.3 mg/dL (0.70-1.30); Calcium 9.8 mg/dL (8.5-10.1); Chloride 101 mmol/L (98-107); Estimated GFR 67.34 (mL/min/1.73m2); FREE T4 1.78 ng/dL (0.76-1.46); Glucose 105 mg/dL (74-106); Potassium 3.9 mmol/L (3.5-5.1); Sodium 141 mmol/L (136-145); Total Protein 7.9 g/dL (6.4-8.2)
== END 2024-11-17 12:24 | disposition home or self-care (01) ==
LOC: LBO 12:24
PROVIDERS: PCP Physician Assistant; Visit Provider Physician Assistant
DX: R63.4 Abnormal weight loss (principal)
CPT/HCPCS: 36415; 80053; 83605; 84439

== ENCOUNTER 2024-12-06 15:55 | Outpatient (CLI) | payer BC, SELFPAY ==
[2024-12-06 14:35] LABS: C-Reactive Protein < 0.50 mg/dL (<or=0.5)
[2024-12-06 14:55] LABS: FREE T4 1.65 ng/dL (0.76-1.46); Lipase 34 U/L (<78)
[2024-12-06 15:18] LABS: TSH < 0.01 uIU/mL (0.36-3.74)
[2024-12-08 09:31] LABS: Thyrotropin Receptor Ab <1.10 IU/L
== END 2024-12-06 15:56 | disposition home or self-care (01) ==
LOC: LBO 15:57
PROVIDERS: PCP Physician Assistant; Visit Provider Surgery
DX: I10 Essential (primary) hypertension (principal); E78.5 Hyperlipidemia, unspecified; E11.9 Type 2 diabetes mellitus without complications; R79.89 Other specified abnormal findings of blood chemistry; C64.9 Malignant neoplasm of unspecified kidney, except renal pelvis; F17.200 Nicotine dependence, unspecified, uncomplicated; T88.4XXA Failed or difficult intubation, initial encounter
CPT/HCPCS: 36415; 83690; 84235; 84439; 84443; 86140

== ENCOUNTER 2024-12-07 02:28 | Outpatient (CLI) | payer BC, SELFPAY ==
--- NOTE | 2024-12-07 06:45 | DI.MRI_ITS ---
Exam(s) MR LUMBAR SPINE WO/W EXAM: MR LUMBAR SPINE WO/W CLINICAL HISTORY: lumbar back pain,NUMBNESS RT FOOT,RENAL CELL CA,H/O NEPHRECTOMY. TECHNIQUE: Multiplanar multisequence MRI of the Lumbar Spine was performed. CONTRAST MATERIAL: IV Contrast: 17 mL of Dotarem contrast administered. COMPARISON: CT CT ABDOMEN PELVIS CTA from 10/10/[address] ABDOMEN PELVIS W from 10/15/2024 FINDINGS: Bones: The last intervertebral disc space is designated the L5/S1 level for the numbering purpose of this examination. The vertebral body heights are well maintained. Alignment is satisfactory. Mild en dplate degenerative signal changes are seen at L4-L5 and L3-L4. There are T1 and T2 hyperintense foc i in the L1 and L2 vertebral bodies most consistent with hemangiomas. Cord: The conus tip ends at the T12-L1 level. It is of normal size and signal intensity. T12-L1: No disc herniations or bulges are present. No central spinal canal or neural foraminal stenos is. L1-2: No disc herniations or bulges are present. No central spinal canal or neural foraminal stenosis . L2-3: No disc herniations or bulges are present. No central spinal canal or neural foraminal stenosis . L3-4: There is a diffuse disc bulge present. There is minimal narrowing of the central spinal canal. There is mild narrowing of the neural foramen bilaterally. L4-5: Mild degenerative changes of the facets are seen. There is no focal disc herniation. No signi ficant central spinal canal stenosis is seen. There is mild bilateral neural foraminal narrowing. L5-S1: No disc herniations or bulges are present. No central spinal canal or neural foraminal stenosi s. Soft tissues: The visualized SI joints and sacrum are well maintained. The lesion in the superior marta e of the left kidney is again seen and is unchanged compared to the CT scans from 11/02. There is no evidence of suspicious enhancement. IMPRESSION: 1. No definite evidence to suggest osseous metastatic disease. 2. Hyperintense T1 and T2 foci in the L1 and L2 vertebral bodies consistent with hemangiomas. 3. Multilevel degenerative changes in the lumbar spine as described above. DATA REPOSITORY:
[2024-12-07] MEDS: Gadoterate meglumine 20 ML SYRINGE 17 ML IVP (09:15)
[2024-12-07] MEDS: Normal Saline Flush 10 ML SYR IVP (09:16)
== END 2024-12-07 02:48 ==
LOC: DI 02:29
PROVIDERS: PCP Physician Assistant; Visit Provider Surgery
DX: D18.09 Hemangioma of other sites (principal); M48.062 Spinal stenosis, lumbar region with neurogenic claudication
CPT/HCPCS: 72158

== ENCOUNTER 2024-12-28 16:37 | Outpatient (REF) | payer BC, SELFPAY ==
[2024-12-28 18:33] LABS: Hemoglobin A1C 6.1 % (<5.7)
[2024-12-28 18:40] LABS: FREE T4 1.13 ng/dL (0.76-1.46)
[2024-12-28 18:44] LABS: TSH < 0.01 uIU/mL (0.36-3.74)
[2024-12-29 19:02] LABS: T3,Free 5.1 pg/mL (2.8-5.3)
== END 2024-12-28 16:38 | disposition home or self-care (01) ==
LOC: NCHCN 16:37
PROVIDERS: PCP Physician Assistant; Visit Provider Physician Assistant
DX: E05.90 Thyrotoxicosis, unspecified without thyrotoxic crisis or storm (principal); E11.9 Type 2 diabetes mellitus without complications
CPT/HCPCS: 83036; 84439; 84443; 84481

== ENCOUNTER 2025-09-05 15:59 | Outpatient (REF) | payer BC, SELFPAY ==
[2025-09-05 16:52] LABS: Hemoglobin A1C 9.3 % (<5.7)
[2025-09-05 17:02] LABS: ALT 34 U/L (16-63); AST 16 U/L (15-37); Albumin 3.8 g/dL (3.4-5.0); Alkaline Phosphatase 126 U/L (46-116); Anion Gap 9.8 mmol/L (3-11); BUN 26 mg/dL (7-18); Bilirubin, Total 0.4 mg/dL (0.2-1.0); CO2 27.2 mmol/L (21.0-32.0); Calcium 9.6 mg/dL (8.5-10.1); Calculated LDL 74 mg/dL (<100); Chloride 97 mmol/L (98-107); Cholesterol 169 mg/dL (<200); Estimated GFR 73.67 (mL/min/1.73m2); Glucose 319 mg/dL (74-106); HDL Cholesterol 45 mg/dL (>or=40); Potassium 4.7 mmol/L (3.5-5.1); Sodium 134 mmol/L (136-145); TSH 0.40 uIU/mL (0.36-3.74); Total Protein 7.5 g/dL (6.4-8.2); Triglyceride 252 mg/dL (<150)
[2025-09-05 17:12] LABS: COMMENT (LAB VIEW ONLY) 93.43 mg/dL; Microalb ug/mg Crea 28.4 ug/mg Cr
== END 2025-09-05 16:00 | disposition home or self-care (01) ==
LOC: NCHCN 15:59
PROVIDERS: PCP Physician Assistant; Visit Provider Physician Assistant
DX: I10 Essential (primary) hypertension (principal); E11.9 Type 2 diabetes mellitus without complications; E05.90 Thyrotoxicosis, unspecified without thyrotoxic crisis or storm
CPT/HCPCS: 80053; 80061; 82043; 82570; 83036; 84439; 84443